=== PATIENT | female | born 1960 | race Caucasian/White ===

== ENCOUNTER 2020-07-22 11:10 | Emergency (ER) | payer OTHER, SELFPAY ==
--- NOTE | 2020-07-22 11:18 | ED.GENADULT ---
HPI - General Adult General Chief complaint: Urogenital-Female Stated complaint: UTI Time Seen by Provider: 07/22/20 11:18 Source: patient Mode of arrival: ambulatory Limitations: no limitations History of Present Illness HPI narrative: 59-year-old female patient presents to the [facility] with complaints of possible urinary tract infection. Patient states she has had burning with urination that started this morning, increase in frequency in urination. Patient states she has very slight low back pain and some lower abdominal pain. Denies any fevers, body aches or chills. Denies any nausea, vomiting or diarrhea. Related Data Home Medications Medication Instructions Recorded Confirmed albuterol sulfate 1 inh INHALATION QID PRN 07/22/20 07/22/20 alprazolam [Xanax] 0.25 mg PO HS PRN 07/22/20 07/22/20 cholecalciferol (vitamin D3) 250 mcg PO DAILY 07/22/20 07/22/20 [Vitamin D3] fluticasone propion-salmeterol 2 puff INHALATION BID 07/22/20 07/22/20 [Advair HFA] krill oil 500 mg PO DAILY 07/22/20 07/22/20 losartan 50 mg PO DAILY 07/22/20 07/22/20 magnesium 400 mg PO DAILY 07/22/20 07/22/20 metformin 1,000 mg PO BID 07/22/20 07/22/20 potassium chloride 20 meq PO DAILY 07/22/20 07/22/20 trazodone 25 mg PO HS 07/22/20 07/22/20 triamterene-hydrochlorothiazid 0.5 tablet PO DAILY 07/22/20 07/22/20 vit C-vit J-erzuhf-ezhh-lutein 1 cap PO BID 07/22/20 07/22/20 [PreserVision Lutein] vitamin E 200 unit PO DAILY 07/22/20 07/22/20 Allergies Allergy/AdvReac Type Severity Reaction Status Date / Time Contrast Media Allergy Unknown RED FLUSH Uncoded 07/22/20 11:36 WITH NAUSEA Review of Systems Review of Systems: Narrative: CONSTITUTIONAL: Denies fever, chills, or sweats. EYES: Denies visual changes, redness, or discharge. ENT: Denies rhinorrhea, congestion, sore throat, or otalgia. CARDIOVASCULAR: Denies chest pain, palpitations, or edema. RESPIRATORY: Denies cough or dyspnea. GASTROINTESTINAL: Positive lower abdominal pain, denies nausea, vomiting, or diarrhea. GENITOURINARY: Denies dysuria or hematuria. Positive pain with urination, urgency frequency that started this morning. SKIN: Denies rash or itching. MUSCULOSKELETAL: Positive low back pain, denies joint pain, or myalgia. NEUROLOGIC: Denies headache, numbness, or weakness. PSYCHIATRIC: Denies anxiety or depression. 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 There is no relevant family history pertinent to the presenting complaint. Exam Narrative: Exam Narrative: GENERAL: Well-appearing, well-nourished, and in no acute distress. HEAD: Normocephalic, atraumatic. EYES: PERRLA and EOMI. ENT: Nares clear, no rhinorrhea or epistaxis. Mucous membranes moist. NECK: Supple. No lymphadenopathy CHEST: Clear to auscultation. No respiratory distress. HEART: Regular rate and rhythm. No murmur heard. Normal peripheral pulses. ABDOMEN: Soft, nontender, nondistended, normal active bowel sounds. No CVA tenderness on percussion. Suprapubic tenderness noted on palpation. EXTREMITIES: Normal range of motion. No edema. SKIN: Warm, dry, no rash. NEURO: No focal deficits. Alert and oriented x3. Course Vital Signs Vital signs: Vital Signs Temperature 36.6 C 07/22/20 11:24 Pulse Rate 86 07/22/20 11:24 Resp
[2020-07-22 11:24] VITALS: BP 124/71; PULSE 86; RESP 14; TEMP 36.6; O2SAT 98
== END 2020-07-22 11:52 | disposition home or self-care (01) ==
PROVIDERS: Emergency Provider Nurse Practitioner Family; PCP Internal Medicine
DX: N30.00 Acute cystitis without hematuria (principal); J45.909 Unspecified asthma, uncomplicated; E11.9 Type 2 diabetes mellitus without complications; I10 Essential (primary) hypertension; M06.9 Rheumatoid arthritis, unspecified
CPT/HCPCS: 81003; 87086; 87088; 99203; G0463

== ENCOUNTER 2023-12-28 10:10 | Emergency (ER) | payer OTHER, SELFPAY ==
--- NOTE | 2023-12-28 11:13 | ED.URI ---
HPI - URI/Sore Throat General Stated Complaint: Shortness of Breath/Cough Time Seen by Provider: 12/28/23 11:13 Source: patient, RN notes reviewed and old records reviewed Mode of arrival: ambulatory Limitations: no limitations History of Present Illness HPI Narrative: 63 yo female presents to the [facility] care for cough, headache and ear pain Sx started yesterday Reports using her albuterol at 6:00 a.m. this morning. Does take her Advair as prescribed twice daily Patient denies any fevers Denies any chest pain Denies abdominal pain Related Data Home Medications Medication Instructions Recorded Confirmed albuterol sulfate 90 mcg/actuation 1 inh inhalation QID PRN Dyspnea 07/22/20 07/22/20 aerosol inhaler alprazolam 0.25 mg tablet (Xanax) 0.25 mg PO HS PRN Anxiety 07/22/20 07/22/20 cholecalciferol (vitamin D3) 125 250 mcg PO DAILY 07/22/20 07/22/20 mcg (5,000 unit) tablet (Vitamin D3) fluticasone propionate 230 2 puff inhalation BID 07/22/20 07/22/20 mcg-salmeterol 21 mcg/actuation HFA inhaler (Advair HFA) krill oil 500 mg capsule 500 mg PO DAILY 07/22/20 07/22/20 losartan 50 mg tablet 50 mg PO DAILY 07/22/20 07/22/20 magnesium 200 mg tablet 400 mg PO DAILY 07/22/20 07/22/20 metformin 1,000 mg tablet 1,000 mg PO BID 07/22/20 07/22/20 potassium chloride 20 mEq 20 meq PO DAILY 07/22/20 07/22/20 tablet,extended release trazodone 50 mg tablet 25 mg PO HS 07/22/20 07/22/20 triamterene 75 0.5 tablet PO DAILY 07/22/20 07/22/20 mg-hydrochlorothiazide 50 mg tablet vit C 226 mg-vit E 90 mg-copper 1 cap PO BID 07/22/20 07/22/20 0.8 mg-zinc oxide-lutein 5 mg capsule (PreserVision Lutein) vitamin E 200 unit capsule 200 unit PO DAILY 07/22/20 07/22/20 Allergies Allergy/AdvReac Type Severity Reaction Status Date / Time Contrast Media Allergy Unknown RED FLUSH Uncoded 07/22/20 11:36 WITH NAUSEA Review of Systems Review of Systems: All systems reviewed & are unremarkable except as noted in HPI and below Constitutional: Constitutional: Reports as per HPI and Reports body ache(s) Eyes: Eyes: Reports no additional eye complaints ENT: Reports system reviewed and no additional complaints, except as documented Cardiovascular: Cardiovascular: Reports no additional cardiovascular complaints, Denies chest pain and Denies dyspnea Respiratory: Respiratory: Reports as per HPI, Denies chest congestion, Reports cough and Denies dyspnea Gastrointestinal: Gastrointestinal: Reports no additional gastrointestinal complaints, Denies abdominal pain, Denies nausea and Denies vomiting Musculoskeletal: Musculoskeletal: Reports no additional musculoskeletal complaints Integumentary/Breasts: Skin/Breast: Reports system reviewed and no additional complaints, except as docu Neurologic: Reports system reviewed and no additional complaints, except as documented Psychiatric: Psychiatric: Reports no additional psychiatric complaints Allergic/Immunologic: Allergic/Immunologic: Reports no additional allergic/immunologic complaints PMFSH Past Medical History Medical History Anemia Asthma Diabetes 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 There is no relevant family history pertinent to the patient complaint. Exam Const: General: cooperative, healthy appearing, comfortable, no acute distress, well develop
== END 2023-12-28 11:38 | disposition home or self-care (01) ==
PROVIDERS: Emergency Provider Nurse Practitioner; PCP Internal Medicine
DX: J40 Bronchitis, not specified as acute or chronic (principal); E11.9 Type 2 diabetes mellitus without complications; I10 Essential (primary) hypertension; M06.9 Rheumatoid arthritis, unspecified; Z20.822 Contact with and (suspected) exposure to COVID-19
CPT/HCPCS: 87426; 99213; G0463

== ENCOUNTER 2024-01-03 09:22 | Emergency (ER) | payer OTHER, SELFPAY ==
[2024-01-03] VITALS (17 sets, daily range): BP systolic 121–146; BP diastolic 73–89; PULSE 75–105; RESP 16–18; TEMP 36.2–36.5; O2SAT 93–98
--- NOTE | ~2024-01-03 | XR_ITS ---
EXAMINATION: XR chest 1V portable DATE: 01/03/2024 09:53 INDICATION: Shortness of breath. Cough. Asthma exacerbation. TECHNIQUE: A single frontal view of the chest was obtained. COMPARISON: None. FINDINGS: There is no pneumonia, pleural effusion, or pneumothorax. The heart size is normal. IMPRESSION: 1. No acute cardiopulmonary disease. Reviewed, dictated and finalized at location [facility]. [facility]
--- NOTE | 2024-01-03 09:32 | ED.URI ---
HPI - URI/Sore Throat General Chief Complaint: Upper Respiratory Infection Stated Complaint: cough and shortness of breath Time Seen by Provider: 01/03/24 09:29 Source: patient Mode of arrival: ambulatory Limitations: no limitations History of Present Illness HPI Narrative: 63-year-old female with a history of diabetes mellitus, hypertension, seasonal allergies, rheumatoid arthritis, asthma presented to urgent care on 12/28/2023 for asthma exacerbation. She tested negative for influenza and COVID. She was treated with prednisone. After completing prednisone for 5 days the patient continues to have ongoing -- cough productive of mucopurulent sputum -- nighttime awakening with coughing spells' -- Ongoing shortness of breath -- low-grade fever -- substernal burning with coughing and deep breathing. MD elicited complaint: fever and cough Pertinent past history: asthma Onset (ago): week(s) ( One week) Consistency: constant Description of mucous: yellow and green Able to tolerate fluids by mouth: Yes Exacerbating factors: speaking and deep breaths Relieving factors: nothing Associated symptoms: fever Treatments prior to arrival: other ( prednisone) Related Data Home Medications Medication Instructions Recorded Confirmed albuterol sulfate 90 mcg/actuation 1 inh inhalation QID PRN Dyspnea 07/22/20 01/03/24 aerosol inhaler alprazolam 0.25 mg tablet (Xanax) 0.25 mg PO HS PRN Anxiety 07/22/20 01/03/24 cholecalciferol (vitamin D3) 125 125 mcg PO DAILY 07/22/20 01/03/24 mcg (5,000 unit) tablet (Vitamin D3) fluticasone propionate 230 2 puff inhalation BID 07/22/20 01/03/24 mcg-salmeterol 21 mcg/actuation HFA inhaler (Advair HFA) krill oil 500 mg capsule 500 mg PO DAILY 07/22/20 01/03/24 magnesium 200 mg tablet 400 mg PO DAILY 07/22/20 01/03/24 metformin 1,000 mg tablet 1,000 mg PO BID 07/22/20 01/03/24 potassium chloride 20 mEq 20 meq PO DAILY 07/22/20 01/03/24 tablet,extended release trazodone 50 mg tablet 50 mg PO HS 07/22/20 01/03/24 triamterene 75 0.5 tablet PO DAILY 07/22/20 01/03/24 mg-hydrochlorothiazide 50 mg tablet lifitegrast 5 % eye drops in a 1 drp EACH EYE BID 01/03/24 01/03/24 dropperette (Xiidra) meclizine 12.5 mg tablet 12.5 mg PO Q6-8H PRN Anxiety 01/03/24 01/03/24 meloxicam 7.5 mg tablet 7.5 mg PO DAILY 01/03/24 01/03/24 pravastatin 20 mg tablet 20 mg PO HS 01/03/24 01/03/24 semaglutide 0.25 mg or 0.5 mg (2 0.5 mg subcut WEEKLY 01/03/24 01/03/24 mg/3 mL) subcutaneous pen injector Allergies Allergy/AdvReac Type Severity Reaction Status Date / Time montelukast [From Singulair] AdvReac Hyperactive Verified 01/03/24 09:31 Contrast Media Allergy Unknown RED FLUSH Uncoded 01/03/24 09:31 WITH NAUSEA Review of Systems Review of Systems: All systems reviewed & are unremarkable except as noted in HPI and below Constitutional: Constitutional: Reports as per HPI, Reports no additional constitutional complaints, Reports fever(s) and Reports weakness Eyes: Eyes: Reports as per HPI and Reports no additional eye complaints ENT: Reports system reviewed and no additional complaints, except as documented and Reports as per HPI Cardiovascular: Cardiovascular: Reports as per HPI and Reports no additional cardiovascular complaints Respiratory: Respiratory: Reports as per HPI, Reports no additional respiratory complaints, Reports chest congestion, Reports cough, Reports dyspnea and Reports wheezing Gastrointestinal: Gastrointestinal: Reports as per HPI and Reports no additional gastrointestinal complaints Genitourinary: Genitourinary: Reports no additional female genitourinary complaints and Reports as per HPI Musculoskeletal: Musculoskeletal: Reports no additional musculoskeletal complaints and Reports as per HPI Integumentary/Breasts: Skin/Breast: Reports system reviewed and no additional complaints, except as docu and Reports as per HPI Neurologic: Reports system reviewed and no additional com
[2024-01-03 10:02] LABS: Basophils Absolute Auto 0.03 K/mm3 (0.00-0.10); Basophils Percent Auto 0.3 % (0.0-1.0); Eosinophils Absolute Auto 0.02 K/mm3 (0.02-0.50); Eosinophils Percent Auto 0.2 % (1.0-6.0); Hematocrit 41.9 % (35.0-49.0); Hemoglobin 13.9 g/dL (12.0-15.0); Immature Granulocyte Absolute 0.04 K/mm3 (0.00-0.00); Immature Granulocyte Percent A 0.4 % (0.0-0.0); Lymphocytes Absolute Auto 1.75 K/mm3 (1.10-4.50); Lymphocytes Percent Auto 18.1 % (18.0-42.0); Mean Corpuscular HGB Conc 33.2 g/dL (32.0-36.0); Mean Corpuscular Hemoglobin 27.7 pg (27.0-31.0); Mean Corpuscular Volume 83.6 fL (78.0-102.0); Mean Platelet Volume 9.5 fl (9.2-11.8); Monocytes Absolute Auto 0.85 K/mm3 (0.10-0.90); Monocytes Percent Auto 8.8 % (2.0-11.0); Neutrophils Percent Auto 72.2 % (50.0-70.0); Platelet Count Result 201 K/mm3 (150-420); Red Blood Count 5.01 M/mm3 (4.20-5.40); Red Cell Distribution Width 13.4 % (11.6-14.4); White Blood Count 9.7 K/mm3 (4.8-10.8)
[2024-01-03] MEDS: IPRATROPIUM 0.5 MG/ALBUTEROL SULFATE 2.5 MG AMPUL.NEB 3 ML INHALATION (10:02)
[2024-01-03 10:22] LABS: Alanine Aminotransferase 39 U/L (14-59); Albumin Level 3.5 g/dL (3.4-5.0); Alkaline Phosphatase 35 U/L (46-116); Anion Gap 12 mmol/L (8-16); Aspartate Amino Transferase 16 U/L (15-37); Bilirubin,Total 0.5 mg/dL (0.00-1.00); Blood Urea Nitrogen 13 mg/dL (7-18); Calcium 8.9 mg/dL (8.5-10.1); Carbon Dioxide 27 mmol/L (21-32); Chloride 101 mmol/L (98-108); Estimated CRCL calculation 60 ml/min; Estimated Glomerular Filt Rate > 60; Glucose 107 mg/dL (70-99); Osmolality Calculated 290 mOsm/kg (285-295); Potassium 3.6 mmol/L (3.5-5.1); Sodium 140 mmol/L (136-145); Total Protein 7.2 g/dL (6.4-8.2); Troponin I 10.8 ng/L (0.00-60.4)
[2024-01-03 10:24] LABS: SARS-CoV-2 RNA PCR Negative (Negative)
[2024-01-03 10:25] LABS: Influenza A QL RT-PCR Negative (Negative); Influenza B QL RT-PCR Positive (Negative); RSV RNA, RT-PCR Negative (Negative)
[2024-01-03 10:28] LABS: Lactic Acid Reflex 2.4 mmol/L (0.4-2.0)
[2024-01-03 11:15] LABS: Reflex Lactic Acid Yes or No Add Lactic
== END 2024-01-03 11:00 | disposition home or self-care (01) ==
PROVIDERS: Emergency Provider Internal Medicine Critical Care Medicine; PCP Internal Medicine
DX: J11.1 Influenza due to unidentified influenza virus with other respiratory manifestations (principal); J40 Bronchitis, not specified as acute or chronic; E11.9 Type 2 diabetes mellitus without complications; I10 Essential (primary) hypertension; M06.9 Rheumatoid arthritis, unspecified; Z79.899 Other long term (current) drug therapy; Z79.1 Long term (current) use of non-steroidal anti-inflammatories (NSAID); Z79.84 Long term (current) use of oral hypoglycemic drugs; Z20.822 Contact with and (suspected) exposure to COVID-19
CPT/HCPCS: 36415; 71045; 80053; 83605; 84484; 85025; 87637; 94640; 99284

== ENCOUNTER 2024-03-29 12:32 | Outpatient (CLI) | payer OTHER, SELFPAY ==
[2024-03-29 13:16] LABS: Anion Gap 9 mmol/L (4-12); Blood Urea Nitrogen 12 mg/dL (7-17); Carbon Dioxide 30 mmol/L (22-30); Chloride 104 mmol/L (98-107); Estimated Glomerular Filt Rate > 60; Glucose 109 mg/dL (65-110); Potassium 3.7 mmol/L (3.4-5.0); Sodium 143 mmol/L (137-145)
--- NOTE | 2024-03-29 13:48 | ECG_ITS ---
SEE SCANNED COPY FOR CONFIRMED REPORT MTDD
== END 2024-03-29 12:33 | disposition home or self-care (01) ==
PROVIDERS: PCP Internal Medicine; Visit Provider Anesthesiology
DX: Z01.818 Encounter for other preprocedural examination (principal); I10 Essential (primary) hypertension; E11.9 Type 2 diabetes mellitus without complications
CPT/HCPCS: 36415; 80048; 93005

== ENCOUNTER 2024-04-05 01:09 | Day surgery (SDC) | payer OTHER, SELFPAY ==
[2024-03-29 09:16] VITALS: BMI 30.4
--- NOTE | 2024-03-29 09:26 | PC.NURSE ---
Report to the Outpatient Waiting Room, entrance under the green pavilion located off [facility], at time _0600_ on date _[id number]_. Planned Procedure Time: _0730_. Time changes happen often and if your time is changed the preop area will call you the afternoon before. - You and your visitor will be asked to self-screen and do not enter if you have any COVID symptoms. - A mask is optional within the hospital at this time. Patients may have clear liquids (water, carbonated beverages, clear teas, apple juice) until 3 hours prior to surgery with a maximum of 20 ounces. - No food from midnight until time of surgery Take the following medications with a SIP of water the morning of surgery: ___Inhalers. DO NOT STOP ANY OF YOUR OTHER PRESCRIPTION MEDICATIONS PRIOR TO SURGERY ?EXCEPT THE FOLLOWING Medications to discontinue per physician All vitamins and supplements. Date to take last qdsu___[id number] Please no make-up, nail greenlandic, hairspray, perfume, deodorant, or body powder the day of surgery. No jewelry (including any body piercings) or valuables the day of surgery, leave them at home. Please take a shower or bath the night before, or the morning of, surgery with an antibacterial soap. Wear comfortable, loose fitting clothing. - Jewelry must be removed prior to entering the operating room. Rings and piercings that are not removed may be cut off. - The hospital will not accept responsibility for valuables. - Please leave all valuables, including medications, at home the day of surgery. If you are going home after surgery, a licensed tour bus driver/guide must drive you home. - NO public transportation without another adult if you receive anesthesia. - We recommend that an adult stay with you for 24 hours following discharge. - We also recommend that you do not drive, make important decision, drink alcoholic beverages, or take any drugs that were not prescribed by your health care provider for at least 24 hours after your discharge time. Follow any additional instructions given to you from your surgeon. If you or anyone in your household have experienced Covid symptoms in the past week, please notify your surgeon or the nurse liaison at the phone number below for possible testing. Telephone instructions given to __Pamela__and asked if any additional questions and then verbalized understanding. Patient advised to call surgeon office or pre surgery nurse liaison [phone] if any additional questions.
--- NOTE | 2024-03-31 19:25 | PM.IMHP ---
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 D and C, abnormal uterine bleeding Hemorrhoids Hypertension Rheumatoid arthritis Seasonal allergies Surgical History Surgical History H/O hemorrhoidectomy History of bladder surgery Tie-up History of orthopedic surgery Left knee, knee scope Family History Family History Other Cancer Diabetes mellitus Hypertension Social History Social History Smoking status: Never smoker Living arrangements: with family Spiritual care concerns: No Meds Home Medications and Allergies Home Medications Medication Instructions Recorded Confirmed Type albuterol sulfate 90 mcg/actuation 1 inh inhalation QID PRN Dyspnea 07/22/20 03/29/24 History aerosol inhaler alprazolam 0.25 mg tablet (Xanax) 0.25 mg PO HS PRN Anxiety 07/22/20 03/29/24 History cholecalciferol (vitamin D3) 125 125 mcg PO DAILY 07/22/20 03/29/24 History mcg (5,000 unit) tablet (Vitamin D3) fluticasone propionate 230 2 puff inhalation BID 07/22/20 03/29/24 History mcg-salmeterol 21 mcg/actuation HFA inhaler (Advair HFA) krill oil 500 mg capsule 500 mg PO DAILY 07/22/20 03/29/24 History magnesium 200 mg tablet 400 mg PO DAILY 07/22/20 03/29/24 History metformin 1,000 mg tablet 500 mg PO BID 07/22/20 03/29/24 History potassium chloride 20 mEq 20 meq PO DAILY 07/22/20 03/29/24 History tablet,extended release trazodone 50 mg tablet 50 mg PO HS 07/22/20 03/29/24 History triamterene 75 0.5 tablet PO DAILY 07/22/20 03/29/24 History mg-hydrochlorothiazide 50 mg tablet ipratropium 0.5 mg-albuterol 3 mg 3 ml inhalation Q6H PRN shortness 01/03/24 03/29/24 Rx (2.5 mg base)/3 mL nebulization of breath #180 mL soln lifitegrast 5 % eye drops in a 1 drp EACH EYE BID 01/03/24 03/29/24 History dropperette (Xiidra) meclizine 12.5 mg tablet 12.5 mg PO Q6-8H PRN Dizziness Or 01/03/24 03/29/24 History Vertigo meloxicam 7.5 mg tablet 7.5 mg PO DAILY PRN Pain 01/03/24 03/29/24 History pravastatin 20 mg tablet 20 mg PO HS 01/03/24 03/29/24 History semaglutide 0.25 mg or 0.5 mg (2 0.5 mg subcut WEEKLY 01/03/24 03/29/24 History mg/3 mL) subcutaneous pen injector biotin 10,000 mcg chewable tablet 10,000 mcg PO DAILY 03/29/24 03/29/24 History (Hair, Skin and Nails (biotin)) docusate sodium 50 mg capsule 100 mg PO DAILY 03/29/24 03/29/24 History loratadine-pseudoephedrine ER 10 1 tablet PO DAILY 03/29/24 03/29/24 History mg-240 mg tablet,extended nyfhrve25am (Claritin-D 24 Hour) lutein 25 mg-zeaxanthin 5 mg 1 cap PO DAILY 03/29/24 03/29/24 History capsule Allergies Allergy/AdvReac Type Severity Reaction Status Date / Time montelukast [From Singulair] AdvReac Hyperactive Verified 03/29/24 09:10 Contrast Media Allergy Unknown RED FLUSH Uncoded 03/29/24 09:10 WITH NAUSEA Exam Narrative: fixed urethra rectocele to introitus Assessment and Plan Assessment and plan (1) Rectocele: Code(s): N81.6 - Rectocele Status: Acute (2) Intrinsic sphincter deficiency (ISD): Code(s): N36.42 - Intrinsic sphincter deficiency (ISD) Status: Acute Plan Rectocele repair/urethral bulking agent
[2024-04-05] VITALS (8 sets, daily range): BP systolic 118–144; BP diastolic 59–84; PULSE 67–81; RESP 14–18; TEMP 36.4; O2SAT 94–100
--- NOTE | 2024-04-05 04:33 | WPDHPUPDATE1 ---
History and Physical Update Update Date/Time: 04/05/24 04:33 History and Physical has been reviewed, including an updated exam of the patient. There are NO changes in the patient's condition. Risks, benefits, and alternatives have been discussed and questions answered. Patient agrees to proceed with procedure.
[2024-04-05 06:40] LABS: Glucose Point of Care 143 mg/dl (65-105)
--- NOTE | 2024-04-05 06:45 | WPDANESEPPF ---
Anes - Initial Pre Proc Eval Procedure: Operation Date: 04/05/24 07:30 Proposed Procedures p Rectocele Repair, - Braulio Brizuela MD s Cystoscopy, Injection Bulking Agent - Braulio Brizuela MD Date/Time: 04/05/24 06:45 Surgeon: Braulio Brizuela MD Pre Op Diagnosis: rectocele, stress incontinence Patient Data Age: 63 Gender: F Height: 1.68 m Weight: 84.5 kg Allergies Allergy/AdvReac Type Severity Reaction Status Date / Time montelukast [From Singulair] AdvReac Hyperactive Verified 04/05/24 06:46 Contrast Media Allergy Unknown RED FLUSH Uncoded 03/29/24 09:10 WITH NAUSEA Home Medications Medication Instructions Recorded Confirmed Type albuterol sulfate 90 mcg/actuation 1 inh inhalation QID PRN Dyspnea 07/22/20 04/05/24 History aerosol inhaler alprazolam 0.25 mg tablet (Xanax) 0.25 mg PO HS PRN Anxiety 07/22/20 03/29/24 History cholecalciferol (vitamin D3) 125 125 mcg PO DAILY 07/22/20 04/05/24 History mcg (5,000 unit) tablet (Vitamin D3) fluticasone propionate 230 2 puff inhalation BID 07/22/20 03/29/24 History mcg-salmeterol 21 mcg/actuation HFA inhaler (Advair HFA) krill oil 500 mg capsule 500 mg PO DAILY 07/22/20 04/05/24 History magnesium 200 mg tablet 400 mg PO DAILY 07/22/20 04/05/24 History metformin 1,000 mg tablet 500 mg PO BID 07/22/20 03/29/24 History potassium chloride 20 mEq 20 meq PO DAILY 07/22/20 04/05/24 History tablet,extended release trazodone 50 mg tablet 50 mg PO HS 07/22/20 03/29/24 History triamterene 75 0.5 tablet PO DAILY 07/22/20 03/29/24 History mg-hydrochlorothiazide 50 mg tablet ipratropium 0.5 mg-albuterol 3 mg 3 ml inhalation Q6H PRN shortness 01/03/24 03/29/24 Rx (2.5 mg base)/3 mL nebulization of breath #180 mL soln lifitegrast 5 % eye drops in a 1 drp EACH EYE BID 01/03/24 03/29/24 History dropperette (Xiidra) meclizine 12.5 mg tablet 12.5 mg PO Q6-8H PRN Dizziness Or 01/03/24 03/29/24 History Vertigo meloxicam 7.5 mg tablet 7.5 mg PO DAILY PRN Pain 01/03/24 03/29/24 History pravastatin 20 mg tablet 20 mg PO HS 01/03/24 03/29/24 History semaglutide 0.25 mg or 0.5 mg (2 0.5 mg subcut WEEKLY 01/03/24 03/29/24 History mg/3 mL) subcutaneous pen injector biotin 10,000 mcg chewable tablet 10,000 mcg PO DAILY 03/29/24 04/05/24 History (Hair, Skin and Nails (biotin)) docusate sodium 50 mg capsule 100 mg PO DAILY 03/29/24 03/29/24 History loratadine-pseudoephedrine ER 10 1 tablet PO DAILY 03/29/24 03/29/24 History mg-240 mg tablet,extended [id number] (Claritin-D 24 Hour) lutein 25 mg-zeaxanthin 5 mg 1 cap PO DAILY 03/29/24 03/29/24 History capsule Laboratory Tests 04/05/24 06:35 POC Capillary Glucose 143 H mg/dl (65-105) Patient hx anesthesia problems: none Family hx anesthesia problems: none Results Review: All pre-operative results and documents have been reviewed as part of the pre-operative evaluation. 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 D and C, abnormal uterine bleeding Hemorrhoids Hypertension Rheumatoid arthritis Seasonal allergies Surgical History Surgical History H/O hemorrhoidectomy History of bladder surgery Tie-up History of orthopedic surgery Left knee, knee scope Family History Family History Other Cancer Diabetes mellitus Hypertension Social History Social History Smoking status: Never smoker Living arrangements: with family Spiritual care concerns: No Anes - Eval Final PreProcedure Day of Procedure 04/05/24 06:45 Patient weight: obese Heart: regular rate and rhythm Lungs: clear to auscultation Airway: Mallampati scale class III Neurological: a
[2024-04-05] MEDS: ceFAZolin 2 GM/D5W 50 ML 2 GM/50 ML BAG IVPB (07:29)
[2024-04-05] MEDS: BUPIVACAINE/EPINEPHRINE 0.5% 10 ML VIAL 20 ML INFILTRATE (07:49)
[2024-04-05] MEDS: LIDOCAINE HCL 2% GEL UROJET 10 ML PKG MUCOUS MEM (07:49)
[2024-04-05] MEDS: LACTATED RINGERS 1,000 ML 30 ML IV CONT ×2 (08:21→08:58)
[2024-04-05 08:37] LABS: Glucose Point of Care 138 mg/dl (65-105)
--- NOTE | 2024-04-05 08:53 | W.PM.PROC2 ---
Procedure Note - Detailed Date of Procedure 04/05/24 Pre-op Diagnosis rectocele, intrinsic sphincter deficiency Post-op Diagnosis Same Procedure Performed Rectocele repair, cystoscopy with transurethral injection of bulking material Surgeon Braulio Brizuela MD Anesthesia General Indications This is a woman with a rectocele which is symptomatic. She has intrinsic sphincter deficiency as well. She presents for the above. She understands risks of bleeding, infection, damage surrounding organs, damage to the urinary tract, recurrence of prolapse, recurrent or persistent incontinence, hip and leg pain, damage to the rectum, fistula formation, obstructive voiding. Agrees to proceed Findings Uncomplicated rectocele repair and bulking agent. One syringe of bulking material used Description of Procedure She is correctly identified. Informed consent obtained. She had from the operating room. She was given general anesthesia. She was placed in the dorsal lithotomy position. She was prepped draped sterile fashion. She was given appropriate perioperative antibiotics. Time-out performed. I placed a [place] retractor. I placed Brunner catheter. She had a rectocele to the introitus. I grasped the rectocele with Allis clamps. I infiltrated the subcutaneous tissues with 20 cc of local mixed with epinephrine. A midline vaginal incision. I dissected the mucosa off the underlying fascial structures laterally into the apex. I took great care not to injure underlying rectum. I then performed a plication rectocele repair. I used interrupted 0 Vicryl sutures. Again took great care to protect the underlying rectum. Once the plication repair was done I trimmed excess vaginal mucosa. I closed the vaginal closed with a running 2-0 Vicryl suture. There was excellent rectocele reduction I then anesthetized a krishan-shaped area of skin on the perineum. I removed this area of skin. I performed a perineoplasty with 0 Vicryl suture. I used a 2-0 Vicryl to close mucosa to mucosa. There was excellent perineal support without undue narrowing of the rectum. On cystoscopy she had no significant bladder abnormalities. She had no tumors or stones. Ureteral orifices were normal. There was no surgical artifact. Urethra is open consistent with intrinsic sphincter deficiency. I picked a site the mid urethra 2 cm distal to bladder neck. I injected bulking agent circumferentially forming 5 pillows Coaptite in the urethra. I used 1 syringe total there was excellent bulking effect. Her bladder was left partially full. Rectal exam was normal. She was awakened transferred to PACU in stable condition Estimated Blood Loss 50 Drains No Packing No Pathology None sent Complications No immediate complications Condition Stable Disposition PACU
[2024-04-05] MEDS: oxyCODONE HCL (*CRX) 5 MG TAB IR PO (09:49)
== END 2024-04-05 10:27 | disposition home or self-care (01) ==
PROVIDERS: PCP Internal Medicine; Visit Provider Urology
PROC: 0JQC0ZZ Repair Pelvic Region Subcutaneous Tissue and Fascia, Open Approach (ICD-10-PCS; CPT 45560; principal; 2024-04-05 07:30)
PROC: 3E0K8GC Introduction of Other Therapeutic Substance into Genitourinary Tract, Via Natural or Artificial Opening Endoscopic (ICD-10-PCS; CPT 52287; 2024-04-05 07:30)
DX: N81.6 Rectocele (principal); N36.42 Intrinsic sphincter deficiency (ISD); E11.9 Type 2 diabetes mellitus without complications; I10 Essential (primary) hypertension; M06.9 Rheumatoid arthritis, unspecified; J45.909 Unspecified asthma, uncomplicated; D64.9 Anemia, unspecified; E66.9 Obesity, unspecified; Z68.30 Body mass index [BMI] 30.0-30.9, adult; Z79.51 Long term (current) use of inhaled steroids; Z79.84 Long term (current) use of oral hypoglycemic drugs; Z79.85 Long-term (current) use of injectable non-insulin antidiabetic drugs
CPT/HCPCS: 57250; 51715; 36415; 80048; 82948; 93005; A9270; J0690; J1100; J2405; J2704; J3010; J7120; L8606

== ENCOUNTER 2024-08-20 08:27 | Outpatient (CLI) | payer OTHER, SELFPAY | END 2024-08-20 08:28 | disposition home or self-care (01) | LOC: ANHBWCAUD 08:27 | PROVIDERS: PCP Internal Medicine | DX: H90.3 Sensorineural hearing loss, bilateral (principal) | CPT/HCPCS: 92557; 92567 ==

== ENCOUNTER 2025-06-24 09:12 | Emergency (ER) | payer MEDICARE, SELFPAY ==
--- NOTE | ~2025-06-24 | CT_ITS ---
EXAMINATION: CT brain wo con DATE: 06/24/2025 09:50 INDICATION: Fall TECHNIQUE: Computed tomography (CT) of the head was performed without intravenous contrast. The dose-length product was 522.34 mGy-cm. COMPARISON: None FINDINGS: No acute intracranial hemorrhage. No mass effect. No midline shift. No hydrocephalus. No skull fracture. Visualized paranasal sinuses and mastoid air cells are clear. IMPRESSION: 1. No acute intracranial hemorrhage. No mass effect. Reviewed, dictated and finalized at location A.
--- NOTE | ~2025-06-24 | CT_ITS ---
EXAMINATION: CT cervical spine wo con DATE: 06/24/2025 09:49 INDICATION: Fall TECHNIQUE: Computed tomography (CT) of the cervical spine was performed without intravenous contrast. The dose-length product was 522.34 mGy-cm. COMPARISON: None FINDINGS: Straightening of the normal cervical lordosis. Cervical vertebral body heights are within normal limits. No compression fracture. Predental space is within normal limits. No prevertebral soft tissue swelling. Lateral dental intervals are within normal limits. Evaluation of the spinal canal contents and bilateral neural foramen is limited due to CT technique. Moderate anterior osteophytosis in the mid cervical spine. IMPRESSION: 1. No compression fracture in the cervical spine. 2. Straightening of the normal cervical lordosis. If symptoms persist or worsen, consider a short-term follow-up study or MRI imaging for further assessment. Reviewed, dictated and finalized at location A. IMPRESSION: 1. No compression fracture in the cervical spine. 2. Straightening of the normal cervical lordosis. If symptoms persist or worsen, consider a short-term follow-up study or MRI gissel ging for further assessment.
[2025-06-24 09:12] VITALS: BP 167/83; PULSE 82; RESP 18; TEMP 36.5; O2SAT 94
--- NOTE | 2025-06-24 09:32 | ED.GENADULT ---
HPI - General Adult General Chief complaint: Skin/Abscess/Foreign Body Stated complaint: fall- head laceration Time Seen by Provider: 06/24/25 09:20 Source: patient Mode of arrival: ambulatory Limitations: no limitations History of Present Illness HPI narrative: patient lost her balance while trying to fix her bed prior to arrival, hit the edge of a door by forehead. No loss of consciousness, complaining of headache and neck pain. Last tetanus shot over 5 years ago. Patient denies other injuries. Related Data Home Medications ?Medication ?Instructions ?Recorded ?Confirmed ?Last Taken ?Type albuterol sulfate 90 mcg/actuation 1 inh inhalation QID PRN Dyspnea 07/22/20 04/05/24 04/05/24 04:00 History aerosol inhaler alprazolam 0.25 mg tablet (Xanax) 0.25 mg PO HS PRN Anxiety 07/22/20 03/29/24 Unknown History cholecalciferol (vitamin D3) 125 125 mcg PO DAILY 07/22/20 04/05/24 04/02/24 History mcg (5,000 unit) tablet (Vitamin D3) fluticasone propionate 230 2 puff inhalation BID 07/22/20 03/29/24 Unknown History mcg-salmeterol 21 mcg/actuation HFA inhaler (Advair HFA) krill oil 500 mg capsule 500 mg PO DAILY 07/22/20 04/05/24 04/02/24 History magnesium 200 mg tablet 400 mg PO DAILY 07/22/20 04/05/24 04/02/24 History metformin 1,000 mg tablet 500 mg PO BID 07/22/20 03/29/24 Unknown History potassium chloride 20 mEq 20 meq PO DAILY 07/22/20 04/05/24 04/02/24 History tablet,extended release trazodone 50 mg tablet 50 mg PO HS 07/22/20 03/29/24 Unknown History triamterene 75 0.5 tablet PO DAILY 07/22/20 03/29/24 Unknown History mg-hydrochlorothiazide 50 mg tablet lifitegrast 5 % eye drops in a 1 drp EACH EYE BID 01/03/24 03/29/24 Unknown History dropperette (Xiidra) meclizine 12.5 mg tablet 12.5 mg PO Q6-8H PRN Dizziness Or 01/03/24 03/29/24 Unknown History Vertigo meloxicam 7.5 mg tablet 7.5 mg PO DAILY PRN Pain 01/03/24 03/29/24 Unknown History Held on 04/05/24. Instructions: Resume on 04/07/24. pravastatin 20 mg tablet 20 mg PO HS 01/03/24 03/29/24 Unknown History semaglutide 0.25 mg or 0.5 mg (2 0.5 mg subcut WEEKLY 01/03/24 03/29/24 Unknown History mg/3 mL) subcutaneous pen injector biotin 10,000 mcg chewable tablet 10,000 mcg PO DAILY 03/29/24 04/05/24 04/02/24 History (Hair, Skin and Nails (biotin)) docusate sodium 50 mg capsule 100 mg PO DAILY 03/29/24 03/29/24 Unknown History loratadine-pseudoephedrine ER 10 1 tablet PO DAILY 03/29/24 03/29/24 Unknown History mg-240 mg tablet,extended [id number] (Claritin-D 24 Hour) lutein 25 mg-zeaxanthin 5 mg 1 cap PO DAILY 03/29/24 03/29/24 Unknown History capsule Allergies Allergy/AdvReac Type Severity Reaction Status Date / Time montelukast (From Singulair) AdvReac Hyperactive Verified 06/24/25 09:32 Contrast Media Allergy Unknown RED FLUSH Uncoded 06/24/25 09:32 WITH NAUSEA Review of Systems Review of Systems: All systems reviewed & are unremarkable except as noted in HPI and below PMFSH Past Medical History Medical History Anemia Diabetes Rheumatoid arthritis 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 Very superficial Eyes: Clear conjunctiva Neck: mild diffuse tenderness posteriorly Chest and respiratory: Airway patent, no respiratory distress, no accessory muscle use Heart: Regular rate/rhythm Musculoskeletal: Normal range of motion, nontender back Neurologic: Alert and oriented ?3, TEACHER CCLC is normal as tested, no gross motor deficit Course Vital Signs Vital signs: Vital Signs Temperature 36.5 C 06/24/25 09:12 Pulse Rate 82 06/24/25 09:12 Respiratory Rate 18 06/24/25 09:12 Blood Pressure 167/83 H 06/24/25 09:12 Pulse Oximetry 94 06/24/25 09:12 Oxygen Delivery Room Air 06/24/25 09:12 Temperature 36.5 C 06/24/25 09:12 Pulse Rate 82 06/24/25 09:12 Respiratory Rate 18 06/24/25 09:12 Blood Pressure 167/83 H 06/24/25 09:12 Pulse Oximetry 94 06/24/25 09:12 Oxygen Delivery Room Air 06/24/25 09:12 Medical Decision Making MDM Narrative Medical decision making narrative: forehead laceration Tetanus shot CT head and cervical spine showed no acute abnormality Discharged home on Dermabond instructions Vital Signs Vital Signs: Vital Signs Temperature 36.5 C 06/24/25 09:12 Pulse Rate 82 06/24/25 09:12 Respiratory Rate 18 06/24/25 09:12 Blood Pressure 167/83 H 06/24/25 09:12 Pulse Oximetry 94 06/24/25 09:12 Oxygen Delivery Room Air 06/24/25 09:12 Temperature 36.5 C 06/24/25 09:12 Pulse Rate 82 06/24/25 09:12 Respiratory Rate 18 06/24/25 09:12 Blood Pressure 167/83 H 06/24/25 09:12 Pulse Oximetry 94 06/24/25 09:12 Oxygen Delivery Room Air 06/24/25 09:12 Imaging Data Radiologist's impression: CT head and cervical spine without contrast showed no acute abnormalities Critical Care Time Critical Care Time Critical Care Time: No Discharge Plan Discharge Clinical Impression: Forehead laceration, Glued skin wound Patient Disposition: Home Condition: Improved Instructions: Laceration (ED), Skin Adhesive Care (ED) Additional Instructions: Return if symptoms are worsening , call your family physician for appointment, take Tylenol as as needed for aches and pain, continue home medications. Patient Language: Maltese Prescriptions: No Action meclizine 12.5 mg Tablet 12.5 mg PO Q6-8H PRN (Reason: Dizziness Or Vertigo) meloxicam 7.5 mg Tablet 7.5 mg PO DAILY PRN (Reason: Pain) pravastatin 20 mg Tablet 20 mg PO HS Xiidra 5 % Dropperette 1 drp EACH EYE BID Rx Instructions: administer approximately 12 hours apart semaglutide 0.25 mg or 0.5 mg (2 mg/3 mL) Pen Injector 0.5 mg SUBCUT WEEKLY Rx Instructions: Monday ipratropium-albuterol 0.5 mg-3 mg(2.5 mg base)/3 mL solution for nebulization 3 ml inhalation Q6H PRN (Reason: shortness of breath) Qty: 180 0RF metformin 1,000 mg Tablet 500 mg PO BID triamterene-hydrochlorothiazid 75-50 mg Tablet 0.5 tablet PO DAILY potassium chloride 20 mEq Tablet Extended Release 20 meq PO DAILY magnesium 200 mg Tablet 400 mg PO DAILY cholecalciferol (vitamin D3) [Vitamin D3] 125 mcg (5,000 unit) Tablet 125 mcg PO DAILY albuterol sulfate 90 mcg/actuation Hfa Aerosol Inhaler 1 inh INHALATION QID PRN (Reason: Dyspnea) fluticasone propion-salmeterol [Advair HFA] 230-21 mcg/actuation Hfa Aerosol Inhaler 2 puff INHALATION BID trazodone 50 mg Tablet 50 mg PO HS krill oil 500 mg Capsule 500 mg PO DAILY alprazolam [Xanax] 0.25 mg Tablet 0.25 mg PO HS PRN (Reason: Anxiety) docusate sodium 50 mg Capsule 100 mg PO DAILY Claritin-D 24 Hour 10-240 mg Tablet Extended Release 24 Hr 1 tablet PO DAILY lutein-zeaxanthin 25-5 mg Capsule 1 cap PO DAILY Hair, Skin and Nails (biotin) 10,000 mcg Tablet,Chewable 10,000 mcg PO DAILY hydrocodone-acetaminophen 5-325 mg tablet 1 tablet PO Q6H PRN (Reason: pain) Qty: 20 0RF Follow-up/Referrals: Serafin,Pierre Nails MD [Primary Care Provider, Unknown]
--- OUTSIDE RECORDS SUMMARY | 2025-06-24 09:34 | XMS_ITS | Encounter Summary ---
Author Organization [facility] Address [address] [place] [address] Phone Care Team Providers Care Bellstand Attendant Name Role Phone Pierre Betancourt MD Primary Care Provider Carlos Venegas MD Unavailable Reason for Visit * Reason Comments Medication Refill Encounter Details Date Type Department Care Team (Late st Contact Info) Description 05/10/2023 Refill [facility] - Internal Medicine - [place] [address] [address] Pierre Betancourt MD [address] [place] [address] Medication Refill Social History Tobacco Use Types Packs/Day Years Used Date Smoking Tobacco: Never Passive Smoke Exposure: Never Smokeless Tobacco: Never Alcohol Use Standard Drinks/Week Comments Not Currently 0 (1 standard drink = 0.6 oz pur e alcohol) PHQ-2 Answer Date Recorded Total Score - Questions 1-9 1 07/07 Sexually Active Control Partners Comments Not Currently Comments No Sex and Gender Information Value Date Recorded Sex Assigned at Not on file Legal Sex Female 12:17 AM CDT Gender Identity Not on file Sexual Orientation Not on file documented as of this encounter Miscellaneous Notes * Telephone Encounter - Christa Martínez RN - 05/10/2023 10:12 AM CDT PDMP 02/14/23 - 30 day supply Medication failed the protocol, provider to review and approve the medication order if appropriate. Requested Prescriptions Pending Prescriptions Disp Refills ALPRAZolam (XANAX) 0.25 MG Tablet [Pharmacy Med Name: ALPRAZOLAM 0.25 MG TABLET] 30 Tablet 0 Sig: TAKE ONE TABLET BY MOUTH DAILY NEEDED FOR ANXIETY Not Delegated - Benzodiazepines Protocol Failed - 05/10/2023 10:04 AM Failed - This refill cannot be delegated Passed - Visit with relevant provider in past 12 months or upcoming 90 days Recent Visits Date Type Provider Dept 03/09/23 Office Visit Pierre Betancourt MD [facility] [place] 12/21/22 Telemedicine Pierre Betancourt MD [facility] [place] 12/08/22 Office Visit Pierre Betancourt MD [facility] [place] 07/25/22 Office Visit Pierre Betancourt MD [facility] [place] Showing recent visits within past 365 days and meeting all other requirements Future Appointments Date Type Provider Dept 06/12/23 Appointment Pierre Betancourt MD [facility] [place] Showing future appointments within next 90 days and meeting all other requirements documented in this encounter Plan of Treatment Upcoming Encounters Date Type Department Care Team (Late st Contact Info) Description 11/27/2025 2:00 PM MATRIX INSPECTOR Office Visit [facility] - Neurology [facility] [address] [place] [address] Carlos Venegas MD [address] [place] [address] 12/03/2025 10:00 AM MATRIX INSPECTOR Office Visit [facility] - Primary Care - [place] [address] [place] [phone] Pierre Betancourt MD [address] [place] [address] documented as of this encounter Visit Diagnoses Diagnosis Generalized anxiety disorder documented in this encounter Additional Health Concerns Assessment Noted Time PHQ-9 Depression Total Score: 1 07/25/20 22 9:00 AM CDT documented as of this encounter Care Teams Bellstand Attendant Relationship Specialty Start Date End Date Pierre Betancourt MD PCP - General Internal Medicine 12/21/19 Carlos Venegas MD [address] [place] [address] Consulting Physician Neurology 07/30/24 documented as of this encounter
--- OUTSIDE RECORDS SUMMARY | 2025-06-24 09:34 | XMS_ITS | Encounter Summary ---
Author Organization [facility] Address [address] [place] [address] Phone Care Team Providers Care Transition Coach Name Role Phone Pierre Betancourt MD Primary Care Provider Carlos Venegas MD Unavailable Encounter Details Date Type Department Care Team (Late st Contact Info) Description 06/12/2025 Results Follow-Up [facility] [place] [address] [place] [address] Franny Burger APRN, ASSEMBLY RIVETER [address] [place] [address] POCT UA AUTOMATED W/O MICRO, CULTURE, URINE Social History Tobacco Use Types Packs/Day Years Used Date Smoking Tobacco: Never Passive Smoke Exposure: Never Smokeless Tobacco: Never Alcohol Use Standard Drinks/Week Comments Not Currently 0 (1 standard drink = 0.6 oz pur e alcohol) [facility] Utilities Answer Date Recorded In the past 12 months has [employer] electric, gas, oil, or water company threatened to shut off services in your home? No 11/20/2024 Social Connection and Isolation Panel Answer Date Recorded In a typical week, how many times do you talk on the phone with family, friends, or neighbors? Three times a week 11/20/2024 How often do you get togethe r with friends or relatives? More than three times a week 11/20/2024 How often do you attend chur ch or mormonism services? Never 11/20/2024 Do you belong to any clubs o r organizations such as pentecostal groups, unions, fraternal or athletic groups, or school groups? No 11/20/2024 How often do you attend meet ings of the clubs or organizations you belong to? Never 11/20/2024 Are you , , di vorced, , never , or living with a partner? 11/20/2024 AUDIT-C Answer Date Recorded Q1: How often do you have a drink containing alcohol? Never 11/20/2024 Q2: How many drinks containi ng alcohol do you have on a typical day when you are drinking? Patient does not drink Q3: How often do you have si x or more drinks on one occasion? Never 11/20/2024 Overall Financial Resource Strain (CARDIA) Answe r Date Recorded How hard is it for you to pa y for the very basics like food, housing, medical care, and heating? Not hard at all 11/20/2024 PHQ-2 Answer Date Recorded Total Score - Questions 1-9 0 05/07 [facility] - Occupational Stress Questionnaire Answer Date Recorded Do you feel stress - tense, restless, nervous, or anxious, or unable to sleep at night because your mind is troubled all the time - these days? To some extent 11/20/2024 Exercise Vital Sign Answer Date Recorde d On average, how many days pe r week do you engage in moderate to strenuous exercise (like a brisk walk)? 0 days 11/20/2024 On average, how many minutes do you engage in exercise at this level? 0 min 11/20/2024 Hunger Vital Sign Answer Date Recorded Within the past 12 months, y ou worried that your food would run out before you got the money to buy more. Never true 11/20/19 25 Within the past 12 months, t he food you bought just didn't last and you didn't have money to get more. Never true 11/20/2024 PRAPARE - Transportation Answer Date Re corded In the past 12 months, has l ack of transportation kept you from medical appointments or from getting medications? No 11/06 In the past 12 months, has l ack of transportation kept you from meetings, work, or from getting things needed for daily living? No 11/20/2024 Housing Stability Vital Sign Answer Erasmo e Recorded In the last 12 months, was t here a time when you were not able to pay the mortgage or rent on time? No 12/18/2023 In the last 12 months, how many places have you lived? 1 12/18/2023 In the last 12 months, was t here a time when you did not have a steady place to sleep or slept in a jail (including now)? No 12/18/2023 Housing Stability Vital Sign Answer Erasmo e Recorded In the last 12 months, was t here a time when you were not able to pay the mortgage or rent on time? No 11/20/2024 In the past 12 months, how m any times have you moved where you were living? 0 11/20/2024 At any time in the past 12 m [facility], were you homeless or living in a jail (including now)? No 11/20/2024 Education Answer Date Recorded What is the highest level of school you have completed or the highest degree you have received? 12th grade 09/13/2023 Sexually Active Control Partners Comments Not Currently Comments No Sex and Gender Information Value Date Recorded Sex Assigned at Not on file Legal Sex Female 12:17 AM CDT Gender Identity Not on file Sexual Orientation Not on file documented as of this encounter Plan of Treatment Upcoming Encounters Date Type Department Care Team (Late st Contact Info) Description 11/27/2025 2:00 PM POSTING MACHINE OPERATOR Office Visit [facility] - Neurology [facility] [address] [place] [phone] Carlos Venegas MD [address] [place] [phone] 12/03/2025 10:00 AM POSTING MACHINE OPERATOR Office Visit [facility] - Primary Care - [place] [address] [place] [phone] Pierre Betancourt MD [address] [place] [address] documented as of this encounter Visit Diagnoses Not on filedocumented in this encounter Additional Health Concerns Assessment Noted Time PHQ-9 Depression Total Score: 0 06/02/20 25 9:17 AM CDT documented as of this encounter Care Teams Transition Coach Relationship Specialty Start Date End Date Pierre Betancourt MD PCP - General Internal Medicine 12/21/19 Carlos Venegas MD [address] [place] [phone] Consulting Physician Neurology 07/30/24 documented as of this encounter
--- OUTSIDE RECORDS SUMMARY | 2025-06-24 09:34 | XMS_ITS | Encounter Summary ---
Author Organization [facility] Address [address] [place] [address] Phone Care Team Providers Care Order Picker Name Role Phone Pierre Betancourt MD Primary Care Provider Carlos Venegas MD Unavailable Reason for Visit * Reason Comments Medication Refill Encounter Details Date Type Department Care Team (Late st Contact Info) Description 05/24/2025 Refill [facility] - Internal Medicine - [place] [address] [place] [address] Pierre Betancourt MD [address] [place] [address] Medication Refill Social History Tobacco Use Types Packs/Day Years Used Date Smoking Tobacco: Never Passive Smoke Exposure: Never Smokeless Tobacco: Never Alcohol Use Standard Drinks/Week Comments Not Currently 0 (1 standard drink = 0.6 oz pur e alcohol) [facility] Utilities Answer Date Recorded In the past 12 months has [employer] electric, gas, oil, or water company threatened [...] often do you attend chur ch or confucianist services? Never 11/20/2024 Do you belong to any clubs o r organizations such as synagogue groups, unions, fraternal or athletic groups, or [...] Recorded Total Score - Questions 1-9 0 11/06 [facility] - Occupational Stress Questionnaire Answer Date Recorded [...] place to sleep or slept in a senior care (including now)? No 12/18/2023 Housing Stability Vital Sign Answer Erasmo e Recorded In the last 12 months, was t here a time when you were not able to pay the mortgage or rent on time? No 11/20/2024 In the past 12 months, how m any times have you moved where you were living? 0 11/20/2024 At any time in the past 12 m [facility], were you homeless or living in a senior care (including now)? No 11/20/2024 Education Answer Date [...] st Contact Info) Description 11/27/2025 2:00 PM LINING STAMPER Office Visit [facility] - Neurology [facility] [address] [place] [phone] Carlos Venegas MD [address] [place] [address] 12/03/2025 10:00 AM LINING STAMPER [facility] - [place] [address] [place] [address] Pierre Betancourt MD [address] [place] [address] documented as of this encounter Visit Diagnoses Not on filedocumented in this encounter Additional Health Concerns Assessment Noted Time PHQ-9 Depression Total Score: 0 11/21/19 25 10:35 AM LINING STAMPER documented as of this encounter Care Teams Order Picker Relationship Specialty Start Date End Date Pierre Betancourt MD PCP - General Internal Medicine 12/21/19 Carlos Venegas MD [address] [place] [address] Consulting Physician Neurology 07/30/24 documented as of this encounter
--- OUTSIDE RECORDS SUMMARY | 2025-06-24 09:35 | XMS_ITS | Encounter Summary ---
Author Organization [facility] Address [address] [place] [address] Phone Care Team Providers Care Building Service Worker Name Role Phone Pierre Betancourt MD Primary Care Provider Carlos Venegas MD Unavailable Reason for Visit * Reason Comments Medication Refill Encounter Details Date Type Department Care Team (Late st Contact Info) Description 07/02/2024 Refill [facility] Medical [facility] - Internal Medicine - [place] [address] [place] [address] Pierre Betancourt MD [address] [place] [address] Medication Refill Social History Tobacco Use Types Packs/Day Years Used Date Smoking Tobacco: Never Passive Smoke Exposure: Never Smokeless Tobacco: Never Alcohol Use Standard Drinks/Week Comments Not Currently 0 (1 standard drink = 0.6 oz pur e alcohol) [facility] Utilities Answer Date Recorded In the past 12 months has [employer] electric, gas, oil, or water company threatened to shut off services in your home? No 12/18/2023 Social Connection and Isolation Panel Answer Date Recorded In a typical week, how many times do you talk on the phone with family, friends, or neighbors? More than three times a week 12/18/2023 How often do you get togethe r with friends or relatives? More than three times a week 12/18/2023 How often do you attend chur ch or tenriism services? Never 12/18/2023 Do you belong to any clubs o r organizations such as gnosticism groups, unions, fraternal or athletic groups, or school groups? No 12/18/2023 How often do you attend meet ings of the clubs or organizations you belong to? Never 12/18/2023 Are you , , di vorced, , never , or living with a partner? 12/18/2023 AUDIT-C Answer Date Recorded Q1: How often do you have a drink containing alcohol? Never 12/18/2023 Q2: How many drinks containi ng alcohol do you have on a typical day when you are drinking? Patient does not drink Q3: How often do you have si x or more drinks on one occasion? Never 12/18/2023 Overall Financial Resource Strain (CARDIA) Answe r Date Recorded How hard is it for you to pa y for the very basics like food, housing, medical care, and heating? Not hard at all 12/18/2023 PHQ-2 Answer Date Recorded Total Score - Questions 1-9 1 04/06 [facility] Occupat ional Health - Occupational Stress Questionnaire Answer Date Recorded Do you feel stress - tense, restless, nervous, or anxious, or unable to sleep at night because your mind is troubled all the time - these days? To some extent 12/18/2023 Exercise Vital Sign Answer Date Recorde d On average, how many days pe r week do you engage in moderate to strenuous exercise (like a brisk walk)? 0 days 12/18/2023 On average, how many minutes do you engage in exercise at this level? 0 min 12/18/2023 Hunger Vital Sign Answer Date Recorded Within the past 12 months, y ou worried that your food would run out before you got the money to buy more. Never true 12/18/19 24 Within the past 12 months, t he food you bought just didn't last and you didn't have money to get more. Never true 12/18/2023 PRAPARE - Transportation Answer Date Re corded In the past 12 months, has l ack of transportation kept you from medical appointments or from getting medications? No 12/07 In the past 12 months, has l ack of transportation kept you from meetings, work, or from getting things needed for daily living? No 12/18/2023 Housing Stability Vital Sign Answer [...] place to sleep or slept in a prison (including now)? No 12/18/2023 Education Answer Date Recorded What is the [...] st Contact Info) Description 11/27/2025 2:00 PM GARMENT PARTS CUTTER MACHINE Office Visit [facility] - Neurology [facility] [address] [place] [address] Carlos Venegas MD [address] [place] [address] 12/03/2025 10:00 AM GARMENT PARTS CUTTER MACHINE Office Visit [facility] - Primary Care - [place] [address] [place] [address] Pierre Betancourt MD [address] [place] [address] documented as of this encounter Visit Diagnoses Not on filedocumented in this encounter Additional Health Concerns Assessment Noted Time PHQ-9 Depression Total Score: 1 04/17/20 24 8:04 AM CDT documented as of this encounter Care Teams Building Service Worker Relationship Specialty Start Date End Date Pierre Betancourt MD PCP - General Internal Medicine 12/21/19 Carlos Venegas MD [address] [place] [address] Consulting Physician Neurology 07/30/24 documented as of this encounter
--- OUTSIDE RECORDS SUMMARY | 2025-06-24 09:35 | XMS_ITS | Encounter Summary ---
Author Organization [facility] Address [address] [place] [address] Phone Care Team Providers Care Ultrasonic Cleaner Name Role Phone Pierre Betancourt MD Primary Care Provider Carlos Venegas MD Unavailable Reason for Visit * Reason Comments Medication Refill Encounter Details Date Type Department Care Team (Late st Contact Info) Description 04/01/2023 Refill [facility] Medical Group - Internal Medicine - [place] [address] [place] [address] Pierre Betancourt MD [address] [place] [address] Medication Refill Social History Tobacco Use Types [...] on file Sexual Orientation Not on file COVID-19 Exposure Response Date Recorded In the last 10 days, have yo u been in contact with someone who was confirmed or suspected to have Coronavirus/COVID-19? No / Unsure 03/30/2023 4:18 PM CDT documented as of this encounter Miscellaneous Notes * Telephone Encounter - Christa Martínez RN - 04/04/2023 8:57 AM CDT Medication failed the protocol, provider to review and approve the medication order if appropriate. Requested Prescriptions Pending Prescriptions Disp Refills MAGnesium-Oxide 400 (240 Mg) MG Tablet [Pharmacy Med Name: MAGNESIUM OXIDE 400 MG TABLET] 90 Tablet0 Sig: TAKE ONE TABLET BY MOUTH DAILY Minerals Magnesium Supplementation Protocol Failed - 04/01/2023 4:30 PM Failed - Magnesium on record in past 12 months No results found for: MAGNESIUM Passed - Visit with relevant provider in past 12 months or upcoming 90 days Recent Visits Date Type Provider Dept 03/09/23 [facility] [place] 12/21/22 Telemedicine Pierre Betancourt MD [facility] [place] 12/08/22 Office Visit Pierre Betancourt MD [facility] [place] 07/25/22 Office Visit [facility] [place] Showing recent visits within past 365 days and meeting all other requirements Future Appointments Date Type Provider Dept 06/12/23 Appointment [facility] [place] Showing future appointments within next 90 days and meeting all other requirements documented in this encounter Plan of Treatment Upcoming Encounters Date Type Department Care Team (Late st Contact Info) Description 11/27/2025 2:00 PM CREEL OPERATOR [facility] [address] [place] [address] Carlos Venegas MD [address] [place] [address] 12/03/2025 10:00 AM CREEL OPERATOR Office Visit [facility] - Primary Care - [place] [address] [place] [address] Pierre Betancourt MD [address] [place] [address] documented as of this encounter Visit Diagnoses Not on filedocumented in this encounter Additional Health Concerns Assessment Noted Time PHQ-9 Depression Total Score: 1 07/25/20 22 9:00 AM CDT documented as of this encounter Care Teams Ultrasonic Cleaner Relationship Specialty Start Date End Date Pierre Betancourt MD PCP - General Internal Medicine 12/21/19 Carlos Venegas MD [address] [place] [address] Consulting Physician Neurology 07/30/24 documented as of this encounter
--- OUTSIDE RECORDS SUMMARY | 2025-06-24 09:35 | XMS_ITS | Encounter Summary ---
Author Organization [facility] Address [address] [place] [address] Phone Care Team Providers Care Pediatric Allergist Name Role Phone Pierre Betancourt MD Primary Care Provider Carlos Venegas MD Unavailable [phone] Reason for Visit * Reason Comments Medication Refill Encounter Details Date Type Department Care Team (Late st Contact Info) Description 02/15/2024 Refill [facility] - Internal Medicine - [place] [address] [place] [address] Pierre Betancourt MD [address] [place] [address] Medication Refill Social History Tobacco Use Types Packs/Day Years Used Date Smoking Tobacco: Never Passive Smoke Exposure: Never Smokeless Tobacco: Never Alcohol Use Standard Drinks/Week Comments Not Currently 0 (1 standard drink = 0.6 oz pur e alcohol) [facility] Utilities Answer Date Recorded In the past 12 months has [employer] electric, gas, oil, or water company threatened [...] often do you attend chur ch or rastafari services? Never 12/18/2023 Do you belong to any clubs o r organizations such as taoist groups, unions, fraternal or athletic groups, or [...] Recorded Total Score - Questions 1-9 0 12/07 [facility] of Occupat ional Health - Occupational Stress [...] place to sleep or slept in a alf (including now)? No 12/18/2023 Education Answer Date [...] encounter Miscellaneous Notes * Telephone Encounter - Didi Yap RN - 02/16/2024 8:09 AM CDT Medication(s) refilled and signed per [facility] Chronic Medication Refill Standing Order for Pediatricand Adult Patients. Requested Prescriptions Pending Prescriptions Disp Refills fluticasone (FLONASE) 50 MCG/ACT Suspension [Pharmacy Med Name: FLUTICASONE PROP 50 MCG SPRAY] 48 mL 0 Sig: SPRAY 1 TO 2 SPRAYS IN EACH NOSTRIL ONCE DAILY DIRECTED Nasal Steroids Protocol Passed - 02/15/2024 5:40 PM Passed - Visit with relevant provider in past 12 months or upcoming 90 days Recent Visits Date Type Provider Dept 01/17/24 Office Visit [facility] [place] 12/19/23 [facility] [place] 10/11/23 Office Visit Henny Quinonez PAC [facility] [place] 09/14/23 Office Visit Pierre Betancourt MD [facility] [place] 06/12/23 Office Visit Pierre Betancourt MD [facility] [place] 03/09/23 Office Visit Pierre Betancourt MD [facility] [place] Showing recent visits within past 365 days and meeting all other requirements Future Appointments Date Type Provider Dept 03/21/24 Appointment [facility] [place] Showing future appointments within next 90 days and meeting all other requirements documented in this encounter Plan of Treatment Upcoming Encounters Date Type Department Care Team (Late st Contact Info) Description 11/27/2025 2:00 PM MANAGER QUALITY COMPLIANCE Office Visit [facility] - Neurology [facility] [address] [place] [address] Carlos Venegas MD [address] [place] [address] 12/03/2025 10:00 AM MANAGER QUALITY COMPLIANCE Office Visit [facility] - Primary Care - [place] [address] [place] [address] Pierre Betancourt MD [address] [place] [address] documented as of this encounter Visit Diagnoses Not on filedocumented in this encounter Additional Health Concerns Assessment Noted Time PHQ-9 Depression Total Score: 0 12/19/19 24 3:06 PM MANAGER QUALITY COMPLIANCE documented as of this encounter Care Teams Pediatric Allergist Relationship Specialty Start Date End Date Pierre Betancourt MD PCP - General Internal Medicine 12/21/19 Carlos Venegas MD [address] [place] [address] Consulting Physician Neurology 07/30/24 documented as of this encounter
--- OUTSIDE RECORDS SUMMARY | 2025-06-24 09:35 | XMS_ITS | Encounter Summary ---
Author Organization [facility] Address [address] [place] [address] Phone Care Team Providers Care Runstitching Machine Operator Name Role Phone Pierre Betancourt MD Primary Care Provider Carlos Venegas MD Unavailable [phone] Reason for Visit * Reason Comments Medication Refill Encounter Details Date Type Department Care Team (Late st Contact Info) Description 03/29/2021 Refill [facility] Medical [facility] - Internal Medicine - [place] [address] [place] [address] Pierre Betancourt MD [address] [place] [address] Medication Refill Social History Tobacco Use Types Packs/Day Years Used Date Smoking Tobacco: Never Smokeless Tobacco: Never Alcohol Use Standard Drinks/Week Comments Not Currently 0 (1 standard drink = 0.6 oz pur e alcohol) PHQ-2 Answer Date Recorded Total Score - Questions 1-9 1 08/06 Comments No Sex and Gender Information Value Date Recorded Sex Assigned at Not on file Legal Sex Female 12:17 AM CDT Gender Identity Not on file Sexual Orientation Not on file documented as of this encounter Miscellaneous Notes * Telephone Encounter - Mikala Rhodes RN - 03/29/2021 10:03 AM CDT Please review and sign. documented in this encounter Plan of Treatment Upcoming Encounters Date Type Department Care Team (Late st Contact Info) Description 11/27/2025 2:00 PM VP FOUNDATION Office Visit [facility] - Neurology [facility] [address] [place] [address] Carlos Venegas MD [address] [place] [address] 12/03/2025 10:00 AM VP FOUNDATION Office Visit [facility] - Primary Care - [place] [address] [place] [address] Pierre Betancourt MD [address] [place] [address] documented as of this encounter Visit Diagnoses Not on filedocumented in this encounter Additional Health Concerns Infection Onset Date Last Indicated Resolved Time COVID - 19 11/02/2021 11/02/2021 11/22/2021 12:1 6 AM VP FOUNDATION Assessment Noted Time PHQ-9 Depression Total Score: 1 08/20/20 20 3:00 PM CDT documented as of this encounter Care Teams Runstitching Machine Operator Relationship Specialty Start Date End Date Pierre Betancourt MD PCP - General Internal Medicine 12/21/19 Carlos Venegas MD [address] [place] [address] Consulting Physician Neurology 07/30/24 documented as of this encounter
--- OUTSIDE RECORDS SUMMARY | 2025-06-24 09:35 | XMS_ITS | Encounter Summary ---
Author Organization [facility] Address [address] [place] [address] Phone Care Team Providers Care Licensed Nuclear Control Room Operator Name Role Phone Pierre Betancourt MD Primary Care Provider Carlos Venegas MD Unavailable Reason for Visit * Reason Comments Medication Refill Encounter Details Date Type Department Care Team (Late st Contact Info) Description 04/26/2021 Refill [facility] - Internal Medicine - [place] [address] [place] [address] Pierre Betancourt MD [address] [place] [address] Medication Refill Social History Tobacco Use Types [...] Telephone Encounter - Mikala Rhodes RN - 04/27/2021 8:01 AM CDT Please review and sign. documented in this encounter Plan of Treatment Upcoming Encounters Date Type Department Care Team (Late st Contact Info) Description 11/27/2025 2:00 PM JEWELRY CONSULTANT Office Visit [facility] - Neurology - [place] [address] [place] [address] Carlos Venegas MD [address] [place] [address] 12/03/2025 10:00 AM JEWELRY CONSULTANT Office Visit [facility] - Primary Care - [place] [address] [place] [address] Pierre Betancourt MD [address] [place] [address] documented as of this encounter Visit Diagnoses Not on filedocumented in this encounter Additional Health Concerns Infection Onset Date Last Indicated Resolved Time COVID - 19 11/02/2021 11/02/2021 11/22/2021 12:1 6 AM JEWELRY CONSULTANT Assessment Noted Time PHQ-9 Depression Total Score: 1 08/20/20 20 3:00 PM CDT documented as of this encounter Care Teams Licensed Nuclear Control Room Operator Relationship Specialty Start Date End Date Pierre Betancourt MD PCP - General Internal Medicine 12/21/19 Carlos Venegas MD [address] [place] [address] Consulting Physician Neurology 07/30/24 documented as of this encounter
--- OUTSIDE RECORDS SUMMARY | 2025-06-24 09:35 | XMS_ITS | Encounter Summary ---
Author Organization [facility] Address [address] [place] [address] Phone Care Team Providers Care Machine Tool Electrician Name Role Phone Pierre Betancourt MD Primary Care Provider [phone] Carlos Venegas MD Unavailable [phone] Reason for Visit * Reason Comments Medication Refill Encounter Details Date Type Department Care Team (Late st Contact Info) Description 04/26/2021 Refill [facility] - Internal Medicine - [place] [address] [place] [address] Henny Quinonez, [facility] [address] [place] [address] Medication Refill Social History Tobacco Use Types [...] Telephone Encounter - Mikala Rhodes RN - 04/28/2021 9:44 AM CDT Please review and sign. documented in this encounter Plan of Treatment Upcoming Encounters Date Type Department Care Team (Late st Contact Info) Description 11/27/2025 2:00 PM SOCIAL MEDIA EDITOR Office Visit [facility] - Neurology - [place] [address] [place] [address] Carlos Venegas MD [address] [place] [address] 12/03/2025 10:00 AM SOCIAL MEDIA EDITOR Office Visit [facility] - Primary Care - [place] [address] [place] [address] Pierre Betancourt MD [address] [place] [address] documented as of this encounter Visit Diagnoses Not on filedocumented in this encounter Additional Health Concerns Infection Onset Date Last Indicated Resolved Time COVID - 19 11/02/2021 11/02/2021 11/22/2021 12:1 6 AM SOCIAL MEDIA EDITOR Assessment Noted Time PHQ-9 Depression Total Score: 1 08/20/20 20 3:00 PM CDT documented as of this encounter Care Teams Machine Tool Electrician Relationship Specialty Start Date End Date Pierre Betancourt MD PCP - General Internal Medicine 12/21/19 Carlos Venegas MD [address] [place] [address] Consulting Physician Neurology 07/30/24 documented as of this encounter
--- OUTSIDE RECORDS SUMMARY | 2025-06-24 09:35 | XMS_ITS | Encounter Summary ---
Author Organization [facility] Address [address] [place] [address] Phone Care Team Providers Care Repairer Controller Tester Name Role Phone Pierre Betancourt MD Primary Care Provider [phone] Carlos Venegas MD Unavailable Reason for Visit * Reason Comments Medication Refill Encounter Details Date Type Department Care Team (Late st Contact Info) Description 04/04/2024 Refill [facility] Group - Internal Medicine - [place] [address] [place] [address] Pierre Betancourt MD [address] [place] [address] Medication Refill Social History Tobacco Use Types Packs/Day Years Used Date Smoking Tobacco: Never Passive Smoke Exposure: Never Smokeless Tobacco: Never Alcohol Use Standard Drinks/Week Comments Not Currently 0 (1 standard drink = 0.6 oz pur e alcohol) [facility] Utilities Answer Date Recorded In the past 12 months has [employer] electric, gas, oil, or water company threatened [...] often do you attend chur ch or yazdanism services? Never 12/18/2023 Do you belong to any clubs o r organizations such as tenriism groups, unions, fraternal or athletic groups, or [...] Total Score - Questions 1-9 0 12/07 [facility] of Occupat ional Health - [...] place to sleep or slept in a retirement (including now)? No 12/18/2023 Education Answer Date [...] Telephone Encounter - Christa Martínez RN - 04/04/2024 1:29 PM CDT Medication(s) refilled and signed per [facility] Chronic Medication Refill Standing Order for Pediatricand Adult Patients. Requested Prescriptions Pending Prescriptions Disp Refills semaglutide,0.25 or 0.5MG/DOS, (Ozempic, 0.25 or 0.5 MG/DOSE,) 2 MG/3ML Solution Pen-injector 9 mL 0 Sig: INJECT 0.5MG SUBCUTANEOUSLY EVERY WEEK GLP-1 Agonists Protocol Passed - 04/04/2024 1:08 PM Passed - Lipid panel result on file in past 12 months LDL Date Value Ref Range Status 12/12/2023 137 (H) <130 mg/dL Final HDL CHOLESTEROL Date Value Ref Range Status 12/12/2023 55 >40 mg/dL Final CHOLESTEROL Date Value Ref Range Status 12/12/2023 210 (H) <200 mg/dL Final TRIGLYCERIDES Date Value Ref Range Status 12/12/2023 92 <150 mg/dL Final VLDL Date Value Ref Range Status 12/12/2023 18 10 - 50 mg/dL Final CHOL/HDL RATIO Date Value Ref Range Status 12/12/2023 3.8 0.0 - 4.4 Final NON-HDL CHOLESTEROL Date Value Ref Range Status 12/12/2023 155 (H) <130 mg/dL Final Passed - Visit with relevant provider in past 6 months or upcoming 90 days Recent Visits Date Type Provider Dept 01/17/24 Office Visit Pierre Betanc[facility] MD [facility] [place] 12/19/23 Office Visit Pierre Betancourt MD [facility] [place] 10/11/23 Office Visit Henny Quinonez PAC [facility] [place] Showing recent visits within past 182 days and meeting all other requirements Future Appointments Date Type Provider Dept 04/17/24 Appointment Pierre Betancourt MD [facility] [place] Showing future appointments within next 90 days and meeting all other requirements Passed - HgA1C result on record in past 6 months HGB-A1C Date Value Ref Range Status 03/09/2023 6.5 (A) 4 - 6 % Final HGB-A1C Date Value Ref Range Status 12/12/2023 5.8 4.0 - 6.0 % Final Passed - GFR on record in past 6 months GFR, EST. NONAFRICAN Date Value Ref Range Status 12/12/2023 >60 >=60 Final documented in this encounter Plan of Treatment Upcoming Encounters Date Type Department Care Team (Late st Contact Info) Description 11/27/2025 2:00 PM MARKETING CAMPAIGN ANALYST Office Visit [facility] - Neurology - [place] [address] [place] [address] Carlos Venegas MD [address] [place] [address] 12/03/2025 10:00 AM MARKETING CAMPAIGN ANALYST Office Visit [facility] - Primary Care - [place] [address] [place] [address] Pierre Betancourt MD [address] [place] [address] documented as of this encounter Visit Diagnoses Not on filedocumented in this encounter Additional Health Concerns Assessment Noted Time PHQ-9 Depression Total Score: 0 12/19/19 24 3:06 PM MARKETING CAMPAIGN ANALYST documented as of this encounter Care Teams Repairer Controller Tester Relationship Specialty Start Date End Date Pierre Betancourt MD PCP - General Internal Medicine 12/21/19 Carlos Venegas MD [address] [place] [address] Consulting Physician Neurology 07/30/24 documented as of this encounter
--- OUTSIDE RECORDS SUMMARY | 2025-06-24 09:35 | XMS_ITS | Encounter Summary ---
Author Organization [facility] Address [address] [place] [address] Phone Care Team Providers Care Corporate Attorney Name Role Phone Pierre Betancourt MD Primary Care Provider Carlos Venegas MD Unavailable Reason for Visit * Reason Comments Medication Refill Encounter Details Date Type Department Care Team (Late st Contact Info) Description 01/07/2024 Refill [facility] - Internal Medicine - [place] [address] [place] [address] Pierre Betancourt MD [address] [place] [address] Medication Refill Social History Tobacco Use Types Packs/Day Years Used Date Smoking Tobacco: Never Passive Smoke Exposure: Never Smokeless Tobacco: Never Alcohol Use Standard Drinks/Week Comments Not Currently 0 (1 standard drink = 0.6 oz pur e alcohol) [facility] Utilities Answer Date Recorded In the past 12 months has [employer] [place] electric, gas, oil, or water company threatened [...] often do you attend chur ch or temple services? Never 12/18/2023 Do you belong to any clubs o r organizations such as druze groups, unions, fraternal or athletic groups, or [...] Total Score - Questions 1-9 0 12/07 [facility] - Occupational Stress [...] place to sleep or slept in a detention (including now)? No 12/18/2023 Education Answer Date [...] Telephone Encounter - Christa Martínez RN - 01/08/2024 8:21 AM CST Medication(s) refilled and signed per [facility] Chronic Medication Refill Standing Order for Pediatricand Adult Patients. Requested Prescriptions Pending Prescriptions Disp Refills albuterol 108 (90 Base) MCG/ACT Aerosol Solution [Pharmacy Med Name: ALBUTEROL HFA 90 MCG INHALER] 18 g 1 Sig: INHALE ONE TO TWO PUFFS BY MOUTH EVERY 6 HOURS NEEDED FOR WHEEZING Short Acting Inhaled Beta-Agonists Protocol Passed - 01/07/2024 1:55 PM Passed - Visit with relevant provider in past 12 months or upcoming 90 days Recent Visits Date Type Provider Dept 12/19/23 Office Visit [facility] 10/11/23 Office Visit Henny Quinonez [facility] 09/14/23 Office Visit Pierre Betancourt MD [facility] [place] 06/12/23 Office Visit Pierre Betancourt MD [facility] [place] 03/09/23 Office Visit Pierre Betancourt MD [facility] [place] Showing recent visits within past 365 days and meeting all other requirements Future Appointments Date Type Provider Dept 01/17/24 Appointment Pierre Betancourt MD [facility] [place] 03/21/24 Appointment Pierre Betancourt MD [facility] [place] Showing future appointments within next 90 days and meeting all other requirements ED PROGRAM TEACHER documented in this encounter Plan of Treatment Upcoming Encounters Date Type Department Care Team (Late st Contact Info) Description 11/27/2025 2:00 PM GIFTED PROGRAM TEACHER Office Visit [facility] - Neurology [facility] [address] [place] [id number] Carlos Venegas MD [address] [place] [address] 12/03/2025 10:00 AM GIFTED PROGRAM TEACHER Office Visit [facility] - Primary Care - [place] [address] [place] [id number] Pierre Betancourt MD [address] [place] [address] documented as of this encounter Visit Diagnoses Not on filedocumented in this encounter Additional Health Concerns Assessment Noted Time PHQ-9 Depression Total Score: 0 12/19/19 3:06 PM GIFTED PROGRAM TEACHER documented as of this encounter Care Teams Corporate Attorney Relationship Specialty Start Date End Date Pierre Betancourt MD PCP - General Internal Medicine 12/21/19 Carlos Venegas MD [address] [place] [address] Consulting Physician Neurology 07/30/24 documented as of this encounter
--- OUTSIDE RECORDS SUMMARY | 2025-06-24 09:35 | XMS_ITS | Encounter Summary ---
Author Organization [facility] Address [address] [place] [address] Phone Care Team Providers Care Career Development Associate Name Role Phone Pierre Betancourt MD Primary Care Provider Carlos Venegas MD Unavailable [phone] Reason for Visit * Reason Comments Medication Refill Encounter Details Date Type Department Care Team (Late st Contact Info) Description 03/07/2024 Refill [facility] - Internal Medicine - [place] [address] [place] [address] Pierre Betancourt MD [address] [place] [address] Medication Refill Social History Tobacco Use Types Packs/Day Years Used Date Smoking Tobacco: Never Passive Smoke Exposure: Never Smokeless Tobacco: Never Alcohol Use Standard Drinks/Week Comments Not Currently 0 (1 standard drink = 0.6 oz pur e alcohol) [facility] Utilities Answer Date Recorded In the past 12 months has [employer] electric, gas, oil, or water company threatened [...] often do you attend chur ch or rastafarian services? Never 12/18/2023 Do you belong to any clubs o r organizations such as worship groups, unions, fraternal or athletic groups, or [...] Total Score - Questions 1-9 0 12/07 [facility] of Occupat ional Health - Occupational Stress [...] place to sleep or slept in a fci (including now)? No 12/18/2023 Education Answer Date [...] Telephone Encounter - Christa Martínez RN - 03/07/2024 4:12 PM CDT Medication failed the protocol, provider to review and approve the medication order if appropriate. Requested Prescriptions Pending Prescriptions Disp Refills magnesium oxide (MAG-OX) 400 (240 Mg) MG Tablet [Pharmacy Med Name: MAGNESIUM OXIDE 400 MG TABLET] 90 Tablet 1 Sig: TAKE 1 TABLET BY MOUTH DAILY Minerals Magnesium Supplementation Protocol Failed - 03/07/2024 4:04 PM Failed - Magnesium on record in past 12 months No results found for: MAGNESIUM Passed - Visit with relevant provider in past 12 months or upcoming 90 days Recent Visits Date Type Provider Dept 01/17/24 Office [facility] [place] [facility]23 [facility] [place] [facility]/11[facility]23 Office [facility] [place] 09/14/23 Office [facility] [place] [facility]/12/23 Office [facility] [place] 03/09/23 Office Visit Pierre Betancourt MD [facility] [place] Showing recent visits within past 365 days and meeting all other requirements Future Appointments Date Type Provider Dept 03/21/24 Appointment Pierre Betancourt MD [facility] [place] Showing future appointments within next 90 days and meeting all other requirements documented in this encounter Plan of Treatment Upcoming Encounters Date Type Department Care Team (Late st Contact Info) Description 11/27/2025 2:00 PM EMAIL CAMPAIGN MANAGER Office Visit [facility] - Neurology [facility] [address] [place] [phone] Carlos Venegas MD [address] [place] [phone] 12/03/2025 10:00 AM EMAIL CAMPAIGN MANAGER Office Visit [facility] - Primary Care - [place] [address] [place] [phone] Pierre Betancourt MD [address] [place] [address] documented as of this encounter Visit Diagnoses Not on filedocumented in this encounter Additional Health Concerns Assessment Noted Time PHQ-9 Depression Total Score: 0 12/19/19 24 3:06 PM EMAIL CAMPAIGN MANAGER documented as of this encounter Care Teams Career Development Associate Relationship Specialty Start Date End Date Pierre Betancourt MD PCP - General Internal Medicine 12/21/19 Carlos Venegas MD [address] [place] [phone] Consulting Physician Neurology 07/30/24 documented as of this encounter
--- OUTSIDE RECORDS SUMMARY | 2025-06-24 09:35 | XMS_ITS | Encounter Summary ---
Author Organization [facility] Address [address] [place] [address] Phone Care Team Providers Care Clinical Psychology Teacher Name Role Phone Pierre Betancourt MD Primary Care Provider [phone] Carlos Venegas MD Unavailable [phone] Reason for Visit * Reason Comments Medication Refill Encounter Details Date Type Department Care Team (Late st Contact Info) Description 03/30/2024 Refill [facility] - Internal Medicine - [place] [address] [place] [address] Pierre Betancourt MD [address] [place] [address] Medication Refill Social History Tobacco Use Types Packs/Day Years Used Date Smoking Tobacco: Never Passive Smoke Exposure: Never Smokeless Tobacco: Never Alcohol Use Standard Drinks/Week Comments Not Currently 0 (1 standard drink = 0.6 oz pur e alcohol) [facility] Utilities Answer Date Recorded In the past 12 months has [employer] electric, gas, oil, or water company threatened [...] often do you attend chur ch or orthodoxy services? Never 12/18/2023 Do you belong to any clubs o r organizations such as religion groups, unions, fraternal or athletic groups, or [...] Total Score - Questions 1-9 0 12/07 [facility] of Occupat ional Health [...] place to sleep or slept in a half-way (including now)? No 12/18/2023 Education Answer Date [...] Telephone Encounter - Christa Martínez RN - 04/02/2024 9:51 AM CDT Medication(s) refilled and signed per [facility] Chronic Medication Refill Standing Order for Pediatricand Adult Patients. Requested Prescriptions Pending Prescriptions Disp Refills albuterol 108 (90 Base) MCG/ACT Aerosol Solution [Pharmacy Med Name: ALBUTEROL HFA 90 MCG INHALER] 18 g 1 Sig: INHALE 1 TO 2 PUFFS BY MOUTH EVERY 6 HOURS NEEDED FOR WHEEZING Short Acting Inhaled Beta-Agonists Protocol Passed - 03/30/2024 4:06 PM Passed - Visit with relevant provider in past 12 months or upcoming 90 days Recent Visits Date Type Provider Dept 01/17/24 Office Visit Pierre Betancourt MD [facility] 12/19/23 Office Visit Pierre Betancourt MD [facility] 10/11/23 Office Visit Henny Quinonez PAC [facility] [place] 09/14/23 Office Visit Pierre Betancourt MD [facility] [place] 06/12/23 Office Visit Pierre Betancourt MD [facility] [place] Showing recent visits within past 365 days and meeting all other requirements Future Appointments Date Type Provider Dept 04/17/24 Appointment Pierre Betancourt MD [facility] [place] Showing future appointments within next 90 days and meeting all other requirements documented in this encounter Plan of Treatment Upcoming Encounters Date Type Department Care Team (Late st Contact Info) Description 11/27/2025 2:00 PM COLOR PRINT INSPECTOR Office Visit [facility] - Neurology [facility] [address] [place] [address] Carlos Venegas MD [address] [place] [phone] 12/03/2025 10:00 AM COLOR PRINT INSPECTOR Office Visit [facility] - Primary Care - [place] [address] [place] [phone] Pierre Betancourt MD [address] [place] [address] documented as of this encounter Visit Diagnoses Not on filedocumented in this encounter Additional Health Concerns Assessment Noted Time PHQ-9 Depression Total Score: 0 12/19/19 24 3:06 PM COLOR PRINT INSPECTOR documented as of this encounter Care Teams Clinical Psychology Teacher Relationship Specialty Start Date End Date Pierre Betancourt MD PCP - General Internal Medicine 12/21/19 Carlos Venegas MD [address] [place] [phone] Consulting Physician Neurology 07/30/24 documented as of this encounter
--- OUTSIDE RECORDS SUMMARY | 2025-06-24 09:35 | XMS_ITS | Clinical Summary ---
Author Organization [facility] [place] Address [address] [place] [address] Phone Care Team Providers Care Landscape Specialist Name Role Phone Pierre Betancourt MD Primary Care Provider Carlos Venegas MD Unavailable Allergies Active Allergy Reactions Criticality Noted Date Comments Iodinated Contrast Media Unknown 04/26/2011 Montelukast Sodium Other (see Comments) 011 BODY ACHES Medications Krill Oil 1000 MG Capsule every morning. 11/14/19 20 Active Xiidra 5 % SolutionIndic ations:Dry Eye Syndrome Indications: Drying and Inflammation of Cornea and Conjunctiva of Eyes 07/27/20 20 Active Cholecalcifer ol (VITAMIN D3 PO) Take 125 mcg by mouth every morning. 2 tabs Active fluticasone (FLONASE) 50 MCG/ACT Suspension SPRAY 1 TO 2 SPRAYS IN EACH NOSTRIL ONCE DAILY DIRECTED 48 mL 1 04/17/20 24 Active Blood Glucose Monitoring Suppl (D-Care Glucometer) w/Device Kit Use to check bl. Sugar once a day. DX-Type 2 DM- non insulin dep 1 Kit 08/01/20 24 Active Glucose Blood Strip Use to check bl. Sugar once a day. DX-Type 2 DM- non insulin dep 100 Strip 5 08/01/20 24 Active albuterol 108 (90 Base) MCG/ACT Aerosol Solution INHALE ONE TO TWO PUFFS BY MOUTH EVERY 6 HOURS NEEDED FOR WHEEZING 18 g 1 08/05/20 24 Active fluticasone-s almeterol (ADVAIR) 250-50 MCG/ACT AEROSOL POWDER, BREATH ACTIVATED take 1 Puff by inhalation 2 times daily. 180 Each 1 11/21/19 25 Active meloxicam (MOBIC) 7.5 MG Tablet TAKE 1 TABLET BY MOUTH DAILY NEEDED FOR MODERATE OR MORE SEVERE PAIN 100 Tablet 2 02/07/20 25 Active estradiol (ESTRACE) 0.1 MG/GM Cream APPLY 1 GRAM VAGINALLY NIGHTLY FOR 2 TO 3 WEEKS, THEN DECREASE TO 2-3 TIMES WEEKLY 01/26/20 25 Active VITAMIN E PO Take by mouth. Ac tive ALPRAZolam (XANAX) 0.25 MG TabletIndicat ions:Generali zed anxiety disorder Take 1 Tablet by mouth Daily as needed for Anxiety. 30 Tablet 2 06/02/20 25 Active magnesium oxide (MAG-OX) 400 (240 Mg) MG Tablet Take 1 Tablet by mouth daily. 90 Tablet 1 06/02/20 25 Active meclizine (ANTIVERT) 12.5 MG Tablet Take 1 Tablet by mouth every 6 hours as needed for Dizziness. 90 Tablet 06/02/20 25 Active Ozempic, 1 MG/DOSE, 4 MG/3ML Solution Pen-injector 1 mg by Subcutaneous route once a week. 12 mL 1 06/02/20 25 Active potassium chloride SA (KLORCON M) 20 MEQ Tablet Controlled Release Take 1 Tablet by mouth daily. 100 Tablet 2 06/02/20 25 Active pravastatin (PRAVACHOL) 20 MG Tablet Take 1 Tablet by mouth every evening. 30 Tablet 06/02/20 25 Active triamterene-h ydrochlorothi azide (MAXZIDE) 75-50 MG Tablet Take 0.5 Tablets by mouth daily. 45 Tablet 1 06/02/20 25 Active metFORMIN (GLUCOPHAGE) 500 MG Tablet Take 1 Tablet by mouth 2 times daily (with meals). 180 Tablet 3 06/02/20 25 Active amitriptyline (ELAVIL) 25 MG TabletIndicat ions:Vestibul ar migraine Take 1 tablet by mouth nightly 90 Tablet 06/20/20 Active meclizine (ANTIVERT) 12.5 MG Tablet Take 1 Tablet by mouth every 6 hours as needed for Dizziness. 90 Tablet 11/21/19 Discontinued(R eorder) triamterene-h ydrochlorothi azide (MAXZIDE) 75-50 MG Tablet Take 0.5 Tablets by mouth daily. 45 Tablet 1 12/30/19 25 025 Discontinued(R eorder) potassium chloride SA (KLORCON M) 20 MEQ Tablet Controlled Release TAKE 1 TABLET BY MOUTH DAILY 100 Tablet 2 02/01/20 025 Discontinued(R eorder) metFORMIN (GLUCOPHAGE) 1000 MG Tablet TAKE ONE-HALF TABLET BY MOUTH TWICE DAILY 100 Tablet 2 02/06/20 25 Discontinued(D ose adjustment) ALPRAZolam (XANAX) 0.25 MG TabletIndicat ions:Generali zed anxiety disorder Take 1 Tablet by mouth Daily as needed for Anxiety. 30 Tablet 2 02/21/20 25 025 Discontinued(R eorder) magnesium oxide (MAG-OX) 400 (240 Mg) MG Tablet Take 1 Tablet by mouth daily. 90 Tablet 1 02/21/20 Discontinued(R eorder) Ozempic, 1 MG/DOSE, 4 MG/3ML Solution Pen-injector 1 mg by Subcutaneous route once a week. 12 mL 1 02/21/20 Discontinued(R eorder) amitriptyline (ELAVIL) 25 MG TabletIndicat ions:Vestibul ar migraine Take 1 Tablet by mouth nightly. 90 Tablet 03/21/20 25 025 Discontinued pravastatin (PRAVACHOL) 20 MG Tablet TAKE 1 TABLET BY MOUTH ONCE DAILY IN THE EVENING 30 Tablet 05/23/20 25 Discontinued(R eorder) nitrofurantoi n, monohydrate-m acrocrystal, (MACROBID) 100 MG CapsuleIndica tions:Acute cystitis without hematuria Take 1 Capsule by mouth 2 times daily for 7 days. 14 Capsule 06/10/20 25 Active Problems Problem Noted Date Diagnosed Date Generalized osteoarthritis 08/01/2024 Other hyperlipidemia 12/19/2023 TMJ syndrome 03/09/2023 Mild persistent asthma without complication 05/06 Vertigo 02/15/2021 Arthralgia 11/20/2020 Type 2 diabetes mellitus wit h diabetic neuropathy, without long-term current use of insulin 06/30/2017 Essential hypertension, benign 04/26/2011 Migraine without aura, not i ntractable, without status migrainosus 04/26/2011 Resolved Problems Problem Noted Date Diagnosed Date Resolved Date Anxiety disorder 05/29/2017 08/01/2024 Encounters Date Type Department Care Team Description 06/20/2025 Refill [facility] [place] [address] [place] [phone] Carlos Venegas MD Medication Refill 06/12/2025 Results Follow-Up [facility] [address] [place] [address] Franny Burger, INTELLIGENCE CHIEF, ROCKET ENGINE TESTER POCT UA AUTOMATED W/O MICRO, CULTURE, URINE 06/10/2025 10:25 AM CDT Urgent Care Visit [facility] [address] [place] [address] Gerard Peralta, JULIA Acute cystitis without hematuria (Primary Dx); Dysuria Discharge Disposition: Discharged to home or Selfcare 06/10/2025 Telephone [facility] [address] [place] [address] Pierre Betancourt MD Medication Management 06/10/2025 Travel 06/10/2025 Nurse Triage [facility] [address] [place] [address] Pierre Betancourt MD Advice Only; Urinary Problem 06/02/2025 9:20 AM CDT Office Visit [facility] - [facility] - [place] [address] [place] [address] Pierre Betancourt MD Type 2 diabetes mellitus with diabetic neuropathy, without long-term current use of insulin (HCC) (Primary Dx); Generalized anxiety disorder; Essential hypertension, benign; Other hyperlipidemia; Mild persistent asthma without complication Discharge Disposition: Discharged to home or Selfcare 06/02/2025 Travel 05/24/2025 Refill [facility] [address] [place] [phone] Pierre Betancourt MD Medication Refill 05/23/2025 [facility] [address] [place] [phone] Pierre Betancourt MD Medication Refill 04/23/2025 Refill [facility] [address] [place] [address] iPerre Betancorut MD Medication Refill 04/20/2025 Results Follow-Up [facility] [address] [place] [address] Gerard Peralta, PAC POCT UA AUTOMATED W/O MICRO, CULTURE, URINE 04/18/2025 10:00 AM CDT Urgent Care Visit [facility] [address] [place] [address] Franny Burger, INTELLIGENCE CHIEF, ROCKET ENGINE TESTER Acute cystitis with hematuria (Primary Dx); Dysuria Discharge Disposition: Discharged to home or Selfcare 04/18/2025 Travel from Last 3 Months Immunizations Immunization Administration Dates Next Due Covid-19, Mrna, Lnp-s, PF, 1 00 mcg/0.5 mL Dose (Moderna) 01/06/2021,12/08/2020 Influenza Vaccine greater than 3 yrs 08/06/2019 Influenza Vaccine, Quadrivalent, PF 11/0 07/2023,07/25/2022,07/14/2021,08/20,08/15/2018 Influenza, Seasonal, Injecta ble, Undefined 08/06/2019 Influenza,Split Virus,Trivalent,Injectable,PF 08/01/2024 Pneumococcal Vaccine Adult - 23 Valent 8 Pneumococcal conjugate PCV20 , polysaccharide DNA339 conjugate, adjuvant, PF 07/25/2022 Family History Medical History Relation Name Comments Heart Attack Brother Heart Disease Brother Leukemia/Lymphoma Brother Heart Attack Father Other-comment Father Blood clotts Heart Attack Mother Stroke Mother Breast Cancer Niece 1 Breast Cancer Niece 2 Breast Cancer Paternal Aunt 1 Breast Cancer Paternal Aunt 2 Breast Cancer Paternal Grandmother Heart Attack Sister Relation Name Status Comments Brother Alive Father Mother Niece 1 Niece 2 Paternal Aunt 1 Paternal Aunt 2 Paternal Grandmother Sister Alive Social History Tobacco Use Types Packs/Day Years Used Date Smoking Tobacco: Never Passive Smoke Exposure: Never Smokeless Tobacco: Never Tobacco Cessation:Counseling Given: No Alcohol Use Standard Drinks/Week Comments Not Currently 0 (1 standard drink = 0.6 oz pur e alcohol) [facility] Pinterestities Answer Date Recorded In the past 12 months has [employer], gas, oil, or water [employer] threatened to shut off services in your [...] week 11/20/2024 How often do you attend [facility] or faith services? Never 11/20/2024 Do you belong to any clubs o r organizations such as scientology groups, unions, fraternal or athletic groups, or [...] Total Score - Questions 1-9 0 05/07 [facility] - Occupational Stress Questionnaire Answer [...] place to sleep or slept in a long term (including now)? No 12/18/2023 Housing Stability Vital Sign Answer Erasmo e Recorded In the last 12 months, was t here a time when you were not able to pay the mortgage or rent on time? No 11/20/2024 In the past 12 months, how m any times have you moved where you were living? 0 11/20/2024 At any time in the past 12 m [place], were you homeless or living in a long term (including now)? No 11/20/2024 Education Answer Date [...] on file Sexual Orientation Not on file Last Filed Vital Signs Vital Sign Reading Time Taken Comments Blood Pressure 140/68 06/10/2025 10:28 AM CDT Pulse 74 06/10/2025 10:28 AM CDT Temperature 36.2 C (97.2 F) 06/10/2025 10:28 AM CDT Respiratory Rate 18 06/10/2025 10:28 AM CDT Oxygen Saturation 94% 06/10/2025 10:28 AM CDT Inhaled Oxygen Concentration - - Weight 86.6 kg (191 lb) 06/02/2025 9:15 AM CDT Height 160 cm (5' 3) 06/02/2025 9:15 AM CDT Body Mass Index 33.83 06/02/2025 9:15 AM CDT Plan of Treatment Upcoming Encounters Date Type Department Care Team (Late st Contact Info) Description 11/27/2025 2:00 PM KILN BURNER HELPER Office Visit [facility] - Neurology [facility] [address] [place] [address] Carlos Venegas MD [address] [place] [address] 12/03/2025 10:00 AM KILN BURNER HELPER Office Visit [facility] - [place] [address] [place] [phone] Pierre Betancourt MD [address] [place] [address] Health Maintenance Due Date Last Done Comments Hepatitis C Virus (HCV) Screening 1960 TdaP Immunization 1960 Cologuard 2004 Immunochemical Fecal Occult Blood 2004 Zoster Immunization (1 of 2) 2009 Respiratory Syncytial Virus (RSV) Immunization (Adult) (1 - Risk 60-74 years 1-dose series) 2019 Diabetes: Eye Exam 03/10/2024 03/10/2023, 05/31/2021 SARS-COV-2 Immunization ( season) 2024 01/06/2021, 12/08/2020 Influenza Immunization (#1) 07/07/202507/08, 09/14/2023, 07/25/2022, Additional history exists Diabetes: Hemoglobin A1c 08/27/2025 025, 11/21/2024, 08/01/2024, Additional history exists Colonoscopy 01/15/2026 01/15/2021 Colorectal Cancer Screening 01/15/2026 Diabetes: Nephropathy Screening 02/25/2026 02/25/2025, 02/25/2025, 01/03/2024, Additional history exists Mammogram 04/25/2026 04/25/2025, 04/06, 04/19/2023, Additional history exists Diabetes: Foot Exam 06/02/2026 06/02/2025, 04/17/2024, 03/09/2023 DEXA Bone Density 03/08/2027 03/08/2025, 11/27/2019 Pneumococcal Immunization (50+ years) Completed 07/25/2022, 08/15/2018 Pneumococcal Immunization Combined Discontinued 07/25/2022, 08/15/2018 Hepatitis B Immunization Aged Out No longer eligible based on patient's age to complete this topic Human Papillomavirus (HPV) Immunization Aged Out No longer eligible based on patient's age to complete this topic Meningococcal Immunization (ACWY) Aged Out No longer eligible based on patient's age to complete this topic Rotavirus Immunization Aged Out No lo nger eligible based on patient's age to complete this topic Procedures Procedure Name Priority Date/Time Associated Diagnosis Comments CULTURE, URINE Routine 06/10/2025 10:36 AM CDT Dysuria POCT UA AUTOMATED W/O MICRO Routine 06/10/2025 10:30 AM CDT Dysuria MAMMOGRAM BILATERAL GENERIC 04/25/2025 12:00 AM CDT CULTURE, URINE Routine 04/18/2025 10:10 AM CDT Dysuria POCT UA AUTOMATED W/O MICRO Routine 04/18/2025 10:00 AM CDT Dysuria JEAN CLAUDE BONE DENSITOMETRY AXIAL SKELETON Routine 03/08/2025 11:30 AM CDT Asymptomatic menopausal state UR MICROALBUMIN/CREATINI NE RATIO RANDOM Routine 02/25/2025 8:33 AM CDT Type 2 diabetes mellitus without complication, without long-term current use of insulin HEMOGLOBIN A1C W/ ESTIMATED GLUCOSE Routine 02/25/2025 8:33 AM CDT Type 2 diabetes mellitus without complication, without long-term current use of insulin HM DILATED EYE EXAM 03/10/2023 1 2:00 AM CDT from Last 3 Months or Most Recently Relevant to Health Maintenance Results * CULTURE, URINE (06/10/2025 10:36 AM CDT) Only the most recent of2 resultswithin the time period is included. CULTURE RESULTS Mixed Growth or 3 or More Organisms, Probable Collection Contamination, Suggest Repeat 06/11/2025 8:14 PM CDT [facility] Culture URINE SPECIMEN OBTAINED BY CLEAN CATCH PROCEDURE / Unknown Non-Phlebotomy Collection / Unknown 06/10/2025 10:36 AM CDT 06/10/2025 10:36 AM CDT us Gerard Peralta [facility] MICROBIOLOGY - GENERAL ORDERA BLES Final Result [facility] [address] [place] [address], [place] * (ABNORMAL) POCT UA AUTOMATED W/O MICRO (06/10/2025 10:30 AM CDT) Only the most recent of2 resultswithin the time period is included. POC UA SPECIFIC GRAVITY 1.025 URINE PH 6.0 5.0 - 9.0 POC URINE LEUKOCYTES 500 /uL(A) Negative Librado/uL POC URINE NITRITE Negative Negative POC URINE PROTEIN Trace(A) Negative mg/dL POC URINE GLUCOSE Negative Negative, Norm mg/dL POC URINE KETONE Negative Negative mg/dL POC URINE UROBILINOGEN 4 E.U./dL (mg/dL)(A) Norm, 0.2 E.U./dL (mg/dL), 1 E.U./dL (mg/dL) POC URINE BILIRUBIN Negative Negative mg/dL POC URINE BLOOD INSTRUMENT Negative Negative Marcial/uL POC URINE COLOR Yellow POC URINE CLARITY Clear Urine 06/10/2025 10:3 0 AM CDT Gerard Peralta PAC POINT OF CARE TESTING (MANUAL ) Final Result * MAMMOGRAM BILATERAL GENERIC (04/25/2025 12:00 AM CDT) 04/25/2025 us Provider Scan IMG MAMMO ORDERABLES Final Resul t SCAN * JEAN CLAUDE BONE DENSITOMETRY AXIAL SKELETON (03/08/2025 11:30 AM CDT) Anatomical Region Laterality Modality BODY N/A Computed Radiogr aphy 03/09/2025 9:59 AM CDT Impressions 03/09/2025 10:01 AM CDT IMPRESSION: Normal bone mass. REFERENCE: Bone mineral density: T-Score: Normal (T-score above or = -1.0) Low bone mass (T-score between -1.0 and -2.5) replaces the previously used term osteopenia Osteoporosis (T-score = or below -2.5) Z-Score: Within the expected range for age (Z-score above -2.0) Below the expected range for age (Z-score is -2.0 or below) Please see below follow up recommendations. Medical evaluation for secondary causes of low bone mineral density may be appropriate. FRAX is a World Health Organization validated fracture risk assessment tool that calculates a person's 10 year probability of a major osteoporosis related fracture and hip fracture. According to the National Osteoporosis Foundation guidelines, postmenopausal women and men age 50 or older with low bone mass and a 10 year probability of a major osteoporosis related fracture = or greater than 20% or a 10 year probability of a hip fracture = or greater than 3% should be considered for pharmacological treatment for the prevention of osteoporosis. For further information, including treatment recommendations, please refer to the 2019 ISCD Official Positions (http://www.iscd.org) and the NOF's Clinician's Guide to Prevention and Treatment of Osteoporosis (http://www.nof.org/professionals/clinical-guidelines) Narrative 03/09/2025 10:01 AM CDT EXAM DESCRIPTION: [facility] BONE DENSITOMETRY AXIAL SKELETON REASON FOR STUDY: 64 y/o year old F with given history of: Postmenopausal status. History rheumatoid arthritis. Advertising Operations Coordinator/Model: [employer] (S/N [id number]) Facility LSC value of 0.028 for the AP spine and 0.033 for the femur. CLINICAL INFORMATION: Current height: 63 inches Maximum height: 63 inches Weight: 189 pounds Risk factors: Rheumatoid arthritis. COMPARISON: None available FINDINGS: AP LUMBAR SPINE L1-L4: Total BMD is 1.424 g/cm2 T-score is 1.9 LEFT HIP: Total BMD is 1.228 g/cm2 T-score is 1.7 Femoral neck BMD is 1.095 g/cm2 T-score is 0.4 FRAX: FRAX not reported due to T-scores of hip, femoral neck and/or spine being at or above -1.0 (Normal). THIS IS AN ELECTRONICALLY VERIFIED FINAL REPORT 03/09/2025 9:59 AM - Electronically signed by Desiree Bassett M.D. TW: EDMUND Report ID: [id number] Reading Location: [id number] Procedure Note Desiree Bassett MD - 03/09/2025 EXAM DESCRIPTION: [facility] BONE DENSITOMETRY AXIAL SKELETON REASON FOR STUDY: 64 y/o year old F with given history of: Postmenopausal status. History rheumatoid arthritis. Advertising Operations Coordinator/Model: [employer] (S/N [id number]) Facility LSC value of 0.028 for the AP spine and 0.033 for the femur. CLINICAL INFORMATION: Current height: 63 inches Maximum height: 63 inches Weight: 189 pounds Risk factors: Rheumatoid arthritis. COMPARISON: None available FINDINGS: AP LUMBAR SPINE L1-L4: Total BMD is 1.424 g/cm2 T-score is 1.9 LEFT HIP: Total BMD is 1.228 g/cm2 T-score is 1.7 Femoral neck BMD is 1.095 g/cm2 T-score is 0.4 FRAX: FRAX not reported due to T-scores of hip, femoral neck and/or spine being at or above -1.0 (Normal). THIS IS AN ELECTRONICALLY VERIFIED FINAL REPORT 03/09/2025 9:59 AM - Electronically signed by Desiree Bassett M.D. TW: TW Report ID: [id number] Reading Location: [place] [address] IMPRESSION: Normal bone mass. REFERENCE: Bone mineral density: T-Score: Normal (T-score above or = -1.0) Low bone mass (T-score between -1.0 and -2.5) replaces the previously used term osteopenia Osteoporosis (T-score = or below -2.5) Z-Score: Within the expected range for age (Z-score above -2.0) Below the expected range for age (Z-score is -2.0 or below) Please see below follow up recommendations. Medical evaluation for secondary causes of low bone mineral density may be appropriate. FRAX is a World Health Organization validated fracture risk assessment tool that calculates a person's 10 year probability of a major osteoporosis related fracture and hip fracture. According to the National Osteoporosis Foundation guidelines, postmenopausal women and men age 50 or older with low bone mass and a 10 year probability of a major osteoporosis related fracture = or greater than 20% or a 10 year probability of a hip fracture = or greater than 3% should be considered for pharmacological treatment for the prevention of osteoporosis. For further information, including treatment recommendations, please refer to the 2019 ISCD Official Positions (http://www.iscd.org) and the NOF's Clinician's Guide to Prevention and Treatment of Osteoporosis (http://www.nof.org/professionals/clinical-guidelines) us Pierre Betancourt MD IMG DEXA ORDERABLES Final R esult * HEMOGLOBIN A1C W/ ESTIMATED GLUCOSE (02/25/2025 8:33 AM CDT) HGB-A1C 6.0 4.0 - 6.0 % 02/25/2025 5:51 PM CDT [facility] Est Average Glucose 125.5 mg/dL 02/25/2025 5:51 PM CDT [facility] Blood Venipuncture / Unknown 02/25/2025 8:33 AM CDT 02/25/2025 8:33 AM CDT Narrative [facility] - 02/25/2025 5:51 PM CDT HEMOGLOBIN A1C: DIABETIC PATIENTS: WELL-CONTROLLED: 6.2 - 7.0 INTERMEDIATE WELL-CONTROLLED: 7.0 - 9.0 POORLY-CONTROLLED: >9.0 Specimens containing greater than 5% of Hemoglobin F may result in lower than expected % HbA1C results. us Pierre Betancourt MD CHEMISTRY ORDERABLES Final Result [facility] [address] [place] [address] * UR MICROALBUMIN/CREATININE RATIO RANDOM (02/25/2025 8:33 AM CDT) Pathologist [facility] RAN UR MICROALBUMIN <0.50 mg/dL 02/25/2025 6:39 PM CDT [facility] Comment:No reference range h as been established. Consider Clinical Correlation. CREATININE URINE 57.0 mg/dL 02/26/20 6:39 PM CDT [facility] Comment:No reference range h as been established. Consider Clinical Correlation. ALB/CREAT RATIO 6:39 PM CDT [facility] Comment:Unable to calculate due to urine microalbumin concentration less than 0.5 mg/dL Urine Non-Phlebotomy Collection / Unknown 02/25/2025 8:33 AM CDT 02/25/2025 8:33 AM CDT us Pierre Betancourt MD URINE ORDERABLES Final Resu lt Performing Organization Address City/[facility]/ZIP Co de Phone Number [facility] [address] [place] [address] * HM DILATED EYE EXAM (03/10/2023 12:00 AM CDT) 03/10/2023 us Provider Scan PROCEDURE/MINOR SURGICAL ORDERAB LES Final Result Performing Organization Address City/[facility]/ZIP Co de Phone Number SCAN from Last 3 Months or Most Recently Relevant to Health Maintenance Insurance MEDICARE C [facility] Care Teams Landscape Specialist Relationship Specialty Start Date End Date Pierre Betancourt MD PCP - General Internal Medicine 12/21/19 Carlos Venegas MD [address] [place] [address] Consulting Physician Neurology 07/30/24
--- OUTSIDE RECORDS SUMMARY | 2025-06-24 09:35 | XMS_ITS | Encounter Summary ---
Author Organization [facility] Address [address] [place] [address] Phone Care Team Providers Care Heel Gummer Name Role Phone Pierre Betancourt MD Primary Care Provider Carlos Venegas MD Unavailable Reason for Visit * Reason Comments Medication Refill Encounter Details Date Type Department Care Team (Late st Contact Info) Description 02/17/2024 Refill [facility] - Internal Medicine - [place] [address] [place] [address] Pierre Betancourt MD [address] [place] [address] Medication Refill Social History Tobacco Use Types Packs/Day Years Used Date Smoking Tobacco: Never Passive Smoke Exposure: Never Smokeless Tobacco: Never Alcohol Use Standard Drinks/Week Comments Not Currently 0 (1 standard drink = 0.6 oz pur e alcohol) [facility] Utilities Answer Date Recorded In the past 12 months has [employer] electric, gas, oil, or water company threatened [...] often do you attend chur ch or roman catholic services? Never 12/18/2023 Do you belong to any clubs o r organizations such as shinto groups, unions, fraternal or athletic groups, or [...] Total Score - Questions 1-9 0 12/07 [facility] - Occupational [...] place to sleep or slept in a halfway (including now)? No 12/18/2023 Education Answer Date [...] encounter Miscellaneous Notes * Telephone Encounter - iDdi Yap RN - 02/17/2024 2:35 PM CDT PRN medication requires provider review Per nursing clinical judgement, provider to review and approve the medication(s) order(s) if appropriate. Requested Prescriptions Pending Prescriptions Disp Refills albuterol 108 (90 Base) MCG/ACT Aerosol Solution [Pharmacy Med Name: ALBUTEROL HFA 90 MCG INHALER] 18 g 1 Sig: INHALE 1 TO 2 PUFFS BY MOUTH EVERY 6 HOURS NEEDED FOR WHEEZING Short Acting Inhaled Beta-Agonists Protocol Passed - 02/17/2024 2:34 PM Passed - Visit with relevant provider in past 12 months or upcoming 90 days Recent Visits Date Type Provider Dept 01/17/24 Office Visit Pierre Betancourt MD [facility] 12/19/23 Office Visit Pierre Betancourt MD [facility] 10/11/23 Office Visit Henny [facility]onez, JULIA [facility] [place] 09/14/23 Office Visit Pierre Betancourt MD [facility] [place] 06/12/23 Office Visit Pierre Betancourt MD [facility] [place] 03/09/23 [facility] [place] Show[facility] recent visits within past 365 days and meeting all other requirements Future Appointments Date Type Provider Dept 03/21/24 Appointment Pierre Betancourt MD [facility] [place] Showing future appointments within next 90 days and meeting all other requirements documented in this encounter Plan of Treatment Upcoming Encounters Date Type Department Care Team (Late st Contact Info) Description 11/27/2025 2:00 PM TELETYPESETTER Office Visit [facility] - Neurology [facility] [address] [place] [address] Carlos Venegas MD [address] [place] [address] 12/03/2025 10:00 AM TELETYPESETTER Office Visit [facility] - Primary Care - [place] [address] [place] [address] Pierre Betancourt MD [address] [place] [address] documented as of this encounter Visit Diagnoses Not on filedocumented in this encounter Additional Health Concerns Assessment Noted Time PHQ-9 Depression Total Score: 0 12/19/19 24 3:06 PM TELETYPESETTER documented as of this encounter Care Teams Heel Gummer Relationship Specialty Start Date End Date Pierre Betancourt MD PCP - General Internal Medicine 12/21/19 Carlos Venegas MD [address] [place] [address] Consulting Physician Neurology 07/30/24 documented as of this encounter
[2025-06-24] MEDS: TETANUS,DIPHTHERIA,AC PERTUSSIS ADULT 0.5 ML (ADACEL) IM (09:49)
[2025-06-24 10:02] VITALS: BP 141/73; PULSE 72; RESP 16; O2SAT 95
--- OUTSIDE RECORDS SUMMARY | 2025-06-24 10:31 | XMS_ITS | Encounter Summary ---
Author Organization [facility] Address [address] [place] [address] Phone Care Team Providers Care White Washer Name Role Phone Pierre Betancourt MD Primary Care Provider Carlos Veneags MD Unavailable [phone] Encounter Details Date Type Department Care Team (Late st Contact Info) Description 06/12/2025 Results Follow-Up [facility] - [facility] - [place] [address] [place] [address] Franny Burger APRN, BELT BUCKLE MAKER [address] [place] [address] POCT UA AUTOMATED W/O MICRO, CULTURE, URINE Social History Tobacco Use Types Packs/Day Years Used Date Smoking Tobacco: Never Passive Smoke Exposure: Never Smokeless Tobacco: Never Alcohol Use Standard Drinks/Week Comments Not Currently 0 (1 standard drink = 0.6 oz pur e alcohol) [facility] Utilities Answer Date Recorded In the past 12 months has [employer] electric, gas, oil, or water company threatened [...] often do you attend chur ch or buddhism services? Never 11/20/2024 Do you belong to any clubs o r organizations such as zoroastrian groups, unions, fraternal or athletic groups, or [...] Total Score - Questions 1-9 0 05/07 [facility] - Occupational Stress Questionnaire Answer Date Recorded [...] place to sleep or slept in a custodial (including now)? No 12/18/2023 Housing Stability Vital Sign Answer Erasmo e Recorded In the last 12 months, was t here a time when you were not able to pay the mortgage or rent on time? No 11/20/2024 In the past 12 months, how m any times have you moved where you were living? 0 11/20/2024 At any time in the past [address] [facility], were you homeless or living in a custodial (including now)? No 11/20/2024 Education Answer Date [...] st Contact Info) Description 11/27/2025 2:00 PM LIVESTOCK SLAUGHTERER Office Visit [facility] - Neurology [facility] [address] [place] [address] Carlos Venegas MD [address] [place] [address] 12/03/2025 10:00 AM LIVESTOCK SLAUGHTERER Office Visit [facility] - Primary Care - [place] [address] [place] [address] Pierre Betancourt MD [address] [place] [address] documented as of this encounter Visit Diagnoses Not on filedocumented in this encounter Additional Health Concerns Assessment Noted Time PHQ-9 Depression Total Score: 0 06/02/20 25 9:17 AM CDT documented as of this encounter Care Teams White Washer Relationship Specialty Start Date End Date Pierre Betancourt MD PCP - General Internal Medicine 12/21/19 Carlos Venegas MD [address] [place] [phone] Consulting Physician Neurology 07/30/24 documented as of this encounter
--- OUTSIDE RECORDS SUMMARY | 2025-06-24 10:31 | XMS_ITS | Clinical Summary ---
Author Organization [facility] [place] Address [address] [place] [address] Phone Care Team Providers Care Carbon Paste Mixer Operator Name Role Phone Pierre Betancourt MD Primary Care Provider Carlos Venegas MD Unavailable [phone] Allergies Active Allergy Reactions Criticality Noted Date [...] Type Department Care Team Description 06/20/2025 Refill [facility] Neurology - [place] [address] [place] [address] Carlos Venegas MD Medication Refill 06/12/2025 Results Follow-Up [facility] [address] [place] [address] Franny Burger, HEAD BOOKKEEPER, PATENT EXAMINER POCT UA AUTOMATED W/O MICRO, CULTURE, URINE 06/10/2025 10:25 AM CDT Urgent Care Visit [facility] [address] [place] [address] Gerard Peralta, JULIA Acute cystitis without hematuria (Primary Dx); Dysuria Discharge Disposition: Discharged to home or Selfcare 06/10/[address] [facility] [address] [place] [address] Pierre Betancourt MD Medication Management 06/10/2025 Travel 06/10/2025 Nurse Triage [facility] Call Center [address] [place] [address] Pierre Betancourt MD Advice Only; Urinary Problem 06/02/2025 9:20 AM CDT Office Visit [facility] - Internal Medicine - [place] [address] [place] [address] Pierre Betancourt MD Type 2 diabetes mellitus with diabetic neuropathy, without long-term current use of insulin (HCC) (Primary Dx); Generalized anxiety disorder; Essential hypertension, benign; Other hyperlipidemia; Mild persistent asthma without complication Discharge Disposition: Discharged to home or Selfcare 06/02/2025 Travel 05/24/2025 Refill [facility] [address] [place] [address] Pierre Betancourt MD Medication Refill 05/23/2025 [facility] [address] [place] [address] Pierre Betancourt MD Medication Refill 04/23/2025 Refill [facility] [address] [place] [address] Pierre Betancourt MD Medication Refill 04/20/2025 Results Follow-Up [facility] [address] [place] [address] Gerard Peralta, PAC POCT UA AUTOMATED W/O MICRO, CULTURE, URINE 04/18/2025 10:00 AM CDT Urgent Care Visit [facility] [address] [place] [address] Franny Burger, HEAD BOOKKEEPER, PATENT EXAMINER Acute cystitis with hematuria (Primary Dx); Dysuria [...] Valent 8 Pneumococcal conjugate PCV20 , polysaccharide ADN340 conjugate, adjuvant, PF 07/25/2022 Family History Medical [...] drink = 0.6 oz pur e alcohol) [facility] [employer] Answer Date Recorded In the past 12 months has [employer], gas, oil, or water [employer] threatened to shut off services in your [...] week 11/20/2024 How often do you attend [facility] ch or yazidism services? Never 11/20/2024 Do you belong to any clubs o r organizations such as pentecostalism groups, unions, fraternal or athletic groups, or [...] Total Score - Questions 1-9 0 05/07 [facility] - Occupational Stress Questionnaire Answer Date [...] in a retirement (including now)? No 12/18/2023 Housing Stability Vital Sign Answer Erasmo e Recorded In the last 12 months, was t here a time when you were not able to pay the mortgage or rent on time? No 11/20/2024 In the past 12 months, how m any times have you moved where you were living? 0 11/20/2024 At any time in the past 12 m [facility], were you homeless or living in a retirement (including now)? No 11/20/2024 Education Answer Date [...] st Contact Info) Description 11/27/2025 2:00 PM MARINE ENGINE MACHINIST Office Visit [facility] - Neurology [facility] [address] [place] [address] Carlos Venegas MD [address] [place] [address] 12/03/2025 10:00 AM MARINE ENGINE MACHINIST Office Visit [facility] - Primary Care - [place] [address] [place] [address] Pierre Betancourt MD [address] [place] [address] Health Maintenance Due Date Last Done Comments [...] Contamination, Suggest Repeat 06/11/2025 8:14 PM CDT [facility] Culture URINE SPECIMEN OBTAINED BY CLEAN CATCH PROCEDURE / Unknown Non-Phlebotomy Collection / Unknown 06/10/2025 10:36 AM CDT 06/10/2025 10:36 AM CDT us Gerard Peralta [facility] MICROBIOLOGY - GENERAL ORDERA BLES Final Result [facility] [address] [place] [address], [place] * (ABNORMAL) POCT UA AUTOMATED W/O [...] Narrative 03/09/2025 10:01 AM CDT EXAM DESCRIPTION: [facility] BONE DENSITOMETRY AXIAL SKELETON REASON FOR STUDY: 64 y/o year old F with given history of: Postmenopausal status. History rheumatoid arthritis. [employer] Bi Developer/Model: [employer] (S/N [id number]) Facility LSC value of 0.028 for the [...] Desiree Bassett M.D. TW: EDMUND Report ID: [id number] Reading Location: [id number] Procedure Note Desiree Bassett MD - 03/09/2025 EXAM DESCRIPTION: [facility] BONE DENSITOMETRY AXIAL SKELETON REASON FOR STUDY: 64 y/o year old F with given history of: Postmenopausal status. History rheumatoid arthritis. [employer] Developer/Model: [employer] (S/N [id number]) Facility LSC value of 0.028 for the [...] Desiree Bassett M.D. TW: TW Report ID: [id number] Reading Location: [place] [address] IMPRESSION: Normal bone mass. REFERENCE: Bone mineral [...] - 6.0 % 02/25/2025 5:51 PM CDT [facility] Est Average Glucose 125.5 mg/dL 02/25/2025 5:51 PM CDT [facility] Blood Venipuncture / Unknown 02/25/2025 8:33 AM CDT 02/25/2025 8:33 AM CDT Narrative [facility] - 02/25/2025 5:51 PM CDT HEMOGLOBIN A1C: DIABETIC PATIENTS: WELL-CONTROLLED: 6.2 - 7.0 INTERMEDIATE WELL-CONTROLLED: 7.0 - 9.0 POORLY-CONTROLLED: >9.0 Specimens containing greater than 5% of Hemoglobin F may result in lower than expected % HbA1C results. us Pierre Betancourt MD CHEMISTRY ORDERABLES Final Result [facility] [address] [place] [address] * UR MICROALBUMIN/CREATININE RATIO RANDOM (02/25/2025 8:33 AM CDT) Pathologist [facility] RAN UR MICROALBUMIN <0.50 mg/dL 02/25/2025 6:39 PM CDT [facility] Comment:No reference range h as been established. Consider Clinical Correlation. CREATININE URINE 57.0 mg/dL 02/26/20 6:39 PM CDT [facility] Comment:No reference range h as been established. Consider Clinical Correlation. ALB/CREAT RATIO 6:39 PM CDT [facility] Comment:Unable to calculate due to urine microalbumin concentration less than 0.5 mg/dL Urine Non-Phlebotomy Collection / Unknown 02/25/2025 8:33 AM CDT 02/25/2025 8:33 AM CDT us Pierre Betancourt MD URINE ORDERABLES Final Resu lt Performing Organization Address City/[facility]/ZIP Co de Phone Number [facility] [address] [place] [address] * HM DILATED EYE EXAM (03/10/2023 12:00 AM CDT) 03/10/2023 us Provider Scan PROCEDURE/MINOR SURGICAL ORDERAB LES Final Result Performing Organization Address City/[facility]/ZIP Co de Phone Number SCAN from Last 3 Months or Most Recently Relevant to Health Maintenance Insurance MEDICARE C [facility] Care Teams Carbon Paste Mixer Operator Relationship Specialty Start Date End Date Pierre Betancourt MD PCP - General Internal Medicine 12/21/19 Carlos Venegas MD [address] [place] [address] Consulting Physician Neurology 07/30/24
--- OUTSIDE RECORDS SUMMARY | 2025-06-24 10:31 | XMS_ITS | Encounter Summary ---
Author Organization [facility] Address [address] [place] [address] Phone Care Team Providers Care Workers' Compensation Magistrate Name Role Phone Pierre Betancourt MD Primary Care Provider [phone] Carlos Venegas MD Unavailable [phone] Reason for Visit * Reason Comments Medication Refill Encounter Details Date Type Department Care Team (Late st Contact Info) Description 03/29/2021 Refill [facility] - Internal Medicine - [place] [address] [place] [address] Pierre Betancourt MD [address] [place] [address] Medication Refill Social History Tobacco Use Types [...] Contact Info) Description 11/27/2025 2:00 PM JEWELRY CASTING MODEL MAKER APPRENTICE Office Visit [facility] - Neurology [facility] [address] [place] [address] Carlos Venegas MD [address] [place] [address] 12/03/2025 10:00 AM JEWELRY CASTING MODEL MAKER APPRENTICE Office Visit [facility] - Primary Care - [place] [address] [place] [address] Pierre Betancourt MD [address] [place] [address] documented as of this encounter Visit Diagnoses Not on filedocumented in this encounter Additional Health Concerns Infection Onset Date Last Indicated Resolved Time COVID - 19 11/02/2021 11/02/2021 11/22/2021 12:1 6 AM JEWELRY CASTING MODEL MAKER APPRENTICE Assessment Noted Time PHQ-9 Depression Total Score: 1 08/20/20 20 3:00 PM CDT documented as of this encounter Care Teams Workers' Compensation Magistrate Relationship Specialty Start Date End Date Pierre Betancourt MD PCP - General Internal Medicine 12/21/19 Carlos Venegas MD [address] [place] [address] Consulting Physician Neurology 07/30/24 documented as of this encounter
--- OUTSIDE RECORDS SUMMARY | 2025-06-24 10:31 | XMS_ITS | Encounter Summary ---
Author Organization [facility] Address [address] [place] [address] Phone Care Team Providers Care Curriculum And Instruction Director Name Role Phone Pierre Betancourt MD Primary Care Provider Carlos Venegas MD Unavailable Reason for Visit * Reason Comments Medication Refill Encounter Details Date Type Department Care Team (Late st Contact Info) Description 02/15/[address] [facility] - Internal Medicine - [place] [address] [address] Pierre Betancourt MD [address] [place] [address] Medication Refill Social History Tobacco Use Types Packs/Day Years Used Date Smoking Tobacco: Never Passive Smoke Exposure: Never Smokeless Tobacco: Never Alcohol Use Standard Drinks/Week Comments Not Currently 0 (1 standard drink = 0.6 oz pur e alcohol) [facility] Utilities Answer Date Recorded In the past 12 months has [employer] electric, gas, oil, or water company threatened [...] attend chur ch or mormonism services? Never 12/18/2023 Do you belong to any clubs o r organizations such as uatsdin groups, unions, fraternal or athletic groups, or [...] Total Score - Questions 1-9 0 12/07 [facility] Occupat ional Health - Occupational [...] place to sleep or slept in a residential (including now)? No 12/18/2023 Education Answer Date [...] Dept 01/17/24 Office Visit [facility] [place] 12/19/23 [facility] [place] 10/11/23 Office Visit Henny Quinonez PAC [facility] [place] 09/14/23 Office Visit [facility] [place] 06/12/23 Office Visit Pierre Betancourt MD [facility] [place] 03/09/23 Office Visit Pierre Betancourt MD [facility] [place] Showing recent visits within past 365 days and meeting all other requirements Future Appointments Date Type Provider Dept 03/21/24 Appointment [facility] [place] Showing future appointments within next 90 days and meeting all other requirements documented in this encounter Plan of Treatment Upcoming Encounters Date Type Department Care Team (Late st Contact Info) Description 11/27/2025 2:00 PM MORTGAGE BROKER Office Visit [facility] - Neurology [facility] [address] [place] [address] Carlos Venegas MD [address] [place] [address] 12/03/2025 10:00 AM MORTGAGE BROKER Office Visit [facility] - Primary Care - [place] [address] [place] [address] Pierre Betancourt MD [address] [place] [address] documented as of this encounter Visit Diagnoses Not on filedocumented in this encounter Additional Health Concerns Assessment Noted Time PHQ-9 Depression Total Score: 0 12/19/19 24 3:06 PM MORTGAGE BROKER documented as of this encounter Care Teams Curriculum And Instruction Director Relationship Specialty Start Date End Date Pierre Betancourt MD PCP - General Internal Medicine 12/21/19 Carlos Venegas MD [address] [place] [address] Consulting Physician Neurology 07/30/24 documented as of this encounter
--- OUTSIDE RECORDS SUMMARY | 2025-06-24 10:31 | XMS_ITS | Encounter Summary ---
Author Organization [facility] Address [address] [place] [address] Phone Care Team Providers Care Automobile Body Repair Supervisor Name Role Phone Pierre Betancourt MD Primary Care Provider Carlos Venegas MD Unavailable [phone] Reason for Visit * Reason Comments Medication Refill Encounter Details Date Type Department Care Team (Late st Contact Info) Description 05/10/2023 Refill [facility] - Internal Medicine - [place] [address] [place] [address] Pierre Betancourt MD [address] [place] [address] Medication Refill Social History Tobacco Use Types [...] 03/09/23 Office Visit Pierre Betancourt MD [facility] [place] 12/21/22 Telemedicine Pierre Betancourt MD [facility] [place] 12/08/22 Office Visit Pierre Betancourt MD [facility] [place] 07/25/22 Office Visit Pierre Betancourt MD [facility] [place] Showing recent visits within past 365 days and meeting all other requirements Future Appointments Date Type Provider Dept 06/12/23 Appointment Pierre Betancourt MD [facility] [place] Showing future appointments within next 90 days and meeting all other requirements documented in this encounter Plan of Treatment Upcoming Encounters Date Type Department Care Team (Late st Contact Info) Description 11/27/2025 2:00 PM TUBE FILLER Office Visit [facility] - Neurology [facility] [address] [place] [address] Carlos Venegas MD [address] [place] [address] 12/03/2025 10:00 AM TUBE FILLER Office Visit [facility] - Primary Care - [place] [address] [place] [address] Pierre Betancourt MD [address] [place] [address] documented as of this encounter Visit Diagnoses Diagnosis Generalized anxiety disorder documented in this encounter Additional Health Concerns Assessment Noted Time PHQ-9 Depression Total Score: 1 07/25/20 22 9:00 AM CDT documented as of this encounter Care Teams Automobile Body Repair Supervisor Relationship Specialty Start Date End Date Pierre Betancourt MD PCP - General Internal Medicine 12/21/19 Carlos Venegas MD [address] [place] [address] Consulting Physician Neurology 07/30/24 documented as of this encounter
--- OUTSIDE RECORDS SUMMARY | 2025-06-24 10:31 | XMS_ITS | Encounter Summary ---
Author Organization [facility] Address [address] [place] [address] Phone Care Team Providers Care Manager Ecommerce Name Role Phone Pierre Betancourt MD Primary Care Provider Carlos Venegas MD Unavailable Reason for Visit * Reason Comments Medication Refill Encounter Details Date Type Department Care Team (Late st Contact Info) Description 02/17/2024 Refill [facility] - Internal Medicine - [place] [address] [place] [address] Pierre Betancourt MD [address] [place] [address] Medication Refill Social History Tobacco Use Types Packs/Day Years Used Date Smoking Tobacco: Never Passive Smoke Exposure: Never Smokeless Tobacco: Never Alcohol Use Standard Drinks/Week Comments Not Currently 0 (1 standard drink = 0.6 oz pur e alcohol) [facility] Utilities Answer Date Recorded In the past 12 months has [employer] electric, gas, oil, or water company threatened [...] often do you attend chur ch or islam services? Never 12/18/2023 Do you belong to [...] Total Score - Questions 1-9 0 12/07 [facility] - [...] place to sleep or slept in a penitentiary (including now)? No 12/18/2023 Education Answer Date [...] Telephone Encounter - Didi Yap RN - 02/17/2024 2:35 PM CDT [...] 01/17/24 Office Visit Pierre Betancourt MD [facility] 12/19/23 Office Visit Pierre Betancourt MD [facility] 10/11/23 Office Visit [facility], [facility] [place] 09/14/23 Office Visit Pierre Betancourt MD [facility] [place] 06/12/23 Office Visit Pierre Betancourt MD [facility] [place] 03/09/23 Office Visit [facility] [place] Showing recent visits within past 365 days and meeting all other requirements Future Appointments Date Type Provider Dept 03/21/24 Appointment Pierre Betancourt MD [facility] [place] Showing future appointments within next 90 days and meeting all other requirements documented in this encounter Plan of Treatment Upcoming Encounters Date Type Department Care Team (Late st Contact Info) Description 11/27/2025 2:00 PM SPRAY WORKER Office Visit [facility] - Neurology [facility] [address] [place] [address] Carlos Venegas MD [address] [place] [address] 12/03/2025 10:00 AM SPRAY WORKER Office Visit [facility] - Primary Care - [place] [address] [place] [address] Pierre Betancourt MD [address] [place] [address] documented as of this encounter Visit Diagnoses Not on filedocumented in this encounter Additional Health Concerns Assessment Noted Time PHQ-9 Depression Total Score: 0 12/19/19 24 3:06 PM SPRAY WORKER documented as of this encounter Care Teams Manager Ecommerce Relationship Specialty Start Date End Date Pierre Betancourt MD PCP - General Internal Medicine 12/21/19 Carlos Venegas MD [address] [facility] [place] [address] Consulting Physician Neurology 07/30/24 documented as of this encounter
--- OUTSIDE RECORDS SUMMARY | 2025-06-24 10:31 | XMS_ITS | Encounter Summary ---
Author Organization [facility] Address [address] [place] [address] Phone Care Team Providers Care Efficiency Engineer Name Role Phone Pierre Betancourt MD Primary Care Provider Carlos Venegas MD Unavailable Reason for Visit * Reason Comments Medication Refill Encounter Details Date Type Department Care Team (Late st Contact Info) Description 04/26/2021 Refill [facility] - Internal Medicine - [place] [address] [place] [address] Pierre Betancourt MD [address] [place] [address] Medication Refill Social History Tobacco Use Types [...] st Contact Info) Description 11/27/2025 2:00 PM PACKAGING ASSEMBLER Office Visit [facility] - Neurology - [place] [address] [place] [address] Carlos Venegas MD [address] [place] [address] 12/03/2025 10:00 AM PACKAGING ASSEMBLER Office Visit [facility] - Primary Care - [place] [address] [place] [address] Pierre Betancourt MD [address] [place] [address] documented as of this encounter Visit Diagnoses Not on filedocumented in this encounter Additional Health Concerns Infection Onset Date Last Indicated Resolved Time COVID - 19 11/02/2021 11/02/2021 11/22/2021 12:1 6 AM PACKAGING ASSEMBLER Assessment Noted Time PHQ-9 Depression Total Score: 1 08/20/20 20 3:00 PM CDT documented as of this encounter Care Teams Efficiency Engineer Relationship Specialty Start Date End Date Pierre Betancourt MD PCP - General Internal Medicine 12/21/19 Carlos Venegas MD [address] [place] [address] Consulting Physician Neurology 07/30/24 documented as of this encounter
--- OUTSIDE RECORDS SUMMARY | 2025-06-24 10:31 | XMS_ITS | Encounter Summary ---
Author Organization [facility] Address [address] [place] [address] Phone Care Team Providers Care Resistance Welder Name Role Phone Pierre Betancourt MD Primary Care Provider Carlos Venegas MD Unavailable Reason for Visit * Reason Comments Medication Refill Encounter Details Date Type Department Care Team (Late st Contact Info) Description 04/26/2021 Refill [facility] - Internal Medicine - [place] [address] [place] [address] Henny Quinonez, [facility] [address] [place] [address] Medication Refill Social History Tobacco Use Types [...] st Contact Info) Description 11/27/2025 2:00 PM COREMAKING SUPERVISOR Office Visit [facility] - Neurology - [place] [address] [place] [address] Carlos Venegas MD [address] [place] [address] 12/03/2025 10:00 AM COREMAKING SUPERVISOR Office Visit [facility] - Primary Care - [place] [address] [place] [address] Pierre Betancourt MD [address] [place] [address] documented as of this encounter Visit Diagnoses Not on filedocumented in this encounter Additional Health Concerns Infection Onset Date Last Indicated Resolved Time COVID - 19 11/02/2021 11/02/2021 11/22/2021 12:1 6 AM COREMAKING SUPERVISOR Assessment Noted Time PHQ-9 Depression Total Score: 1 08/20/20 20 3:00 PM CDT documented as of this encounter Care Teams Resistance Welder Relationship Specialty Start Date End Date Pierre Betancourt MD PCP - General Internal Medicine 12/21/19 Carlos Venegas MD [address] [place] [address] Consulting Physician Neurology 07/30/24 documented as of this encounter
--- OUTSIDE RECORDS SUMMARY | 2025-06-24 10:31 | XMS_ITS | Encounter Summary ---
Author Organization [facility] Address [address] [place] [address] Phone Care Team Providers Care Parking Regulation Enforcement Officer Name Role Phone Pierre Betancourt MD Primary Care Provider Carlos Venegas MD Unavailable Reason for Visit * Reason Comments Medication Refill Encounter Details Date Type Department Care Team (Late st Contact Info) Description 07/02/2024 Refill [facility] Medical Group - Internal Medicine - [place] [address] [place] [address] Pierre Betancourt MD [address] [place] [address] Medication Refill Social History Tobacco Use Types Packs/Day Years Used Date Smoking Tobacco: Never Passive Smoke Exposure: Never Smokeless Tobacco: Never Alcohol Use Standard Drinks/Week Comments Not Currently 0 (1 standard drink = 0.6 oz pur e alcohol) [facility] Utilities Answer Date Recorded In the past 12 months has [employer] electric, gas, oil, or water company threatened [...] often do you attend chur ch or uatsdin services? Never 12/18/2023 Do you belong to [...] Total Score - Questions 1-9 1 04/06 [facility]at ional [facility] - [...] a long term (including now)? No 12/18/2023 Education Answer Date [...] st Contact Info) Description 11/27/2025 2:00 PM RESEARCH ASST Office Visit [facility] - Neurology [facility] [address] [place] [address] Carlos Venegas MD [address] [place] [address] 12/03/2025 10:00 AM RESEARCH ASST Office Visit [facility] - Primary Care - [place] [address] [place] [address] Pierre Betancourt MD [address] [place] [address] documented as of this encounter Visit Diagnoses Not on filedocumented in this encounter Additional Health Concerns Assessment Noted Time PHQ-9 Depression Total Score: 1 04/17/20 24 8:04 AM CDT documented as of this encounter Care Teams Parking Regulation Enforcement Officer Relationship Specialty Start Date End Date Pierre Betancourt MD PCP - General Internal Medicine 12/21/19 Carlos Venegas MD [address] [place] [address] Consulting Physician Neurology 07/30/24 documented as of this encounter
--- OUTSIDE RECORDS SUMMARY | 2025-06-24 10:31 | XMS_ITS | Encounter Summary ---
Author Organization [facility] Address [address] [place] [address] Phone Care Team Providers Care Territory Sales Professional Name Role Phone Pierre Betancourt MD Primary Care Provider Carlos Venegas MD Unavailable Reason for Visit * Reason Comments Medication Refill Encounter Details Date Type Department Care Team (Late st Contact Info) Description 01/07/2024 Refill [facility] - Internal Medicine - [place] [address] [place] [address] Pierre Betancourt MD [address] [place] [address] Medication Refill Social History Tobacco Use Types Packs/Day Years Used Date Smoking Tobacco: Never Passive Smoke Exposure: Never Smokeless Tobacco: Never Alcohol Use Standard Drinks/Week Comments Not Currently 0 (1 standard drink = 0.6 oz pur e alcohol) [facility] Utilities Answer Date Recorded In the past 12 months has [employer] electric, gas, oil, or water company threatened [...] often do you attend chur ch or yazidi services? Never 12/18/2023 Do you belong to any clubs o r organizations such as confucianism groups, unions, fraternal or athletic groups, or [...] Total Score - Questions 1-9 0 12/07 [facility] Occupat ional Health - Occupational [...] AM CST Medication(s) refilled and signed [facility] Medication Refill Standing Order for Pediatricand [...] Dept 12/19/23 Office Visit [facility]11[facility]23 Office Visit Henny Quinonez PAC [facility] 09/14/23 Office Visit Pierre Betancourt MD [facility] [place] 06/12/23 Office Visit Pierre Betancourt MD [facility] [place] 03/09/23 Office Visit Pierre Betancourt MD [facility] [place] Showing recent visits within past 365 days and meeting all other requirements Future Appointments Date Type Provider Dept 01/17/24 Appointment Pierre Betancourt MD [facility] [place] 03/21/24 Appointment Pierre Betancourt MD [facility] [place] Showing future appointments within next 90 days and meeting all other requirements ERSHIP DIRECTOR documented in this encounter Plan of Treatment Upcoming Encounters Date Type Department Care Team (Late st Contact Info) Description 11/27/2025 2:00 PM MEMBERSHIP DIRECTOR Office Visit [facility] - Neurology [facility] [address] [place] [address] Carlos Venegas MD [address] [place] [address] 12/03/2025 10:00 AM MEMBERSHIP DIRECTOR Office Visit [facility] - Primary Care - [place] [address] [place] [address] Pierre Betancourt MD [address] [place] [address] documented as of this encounter Visit Diagnoses Not on filedocumented in this encounter Additional Health Concerns Assessment Noted Time PHQ-9 Depression Total Score: 0 12/19/19 3:06 PM MEMBERSHIP DIRECTOR documented as of this encounter Care Teams Territory Sales Professional Relationship Specialty Start Date End Date Pierre Betancourt MD PCP - General Internal Medicine 12/21/19 Carlos Venegas MD [address] [place] [address] Consulting Physician Neurology 07/30/24 documented as of this encounter
--- OUTSIDE RECORDS SUMMARY | 2025-06-24 10:31 | XMS_ITS | Encounter Summary ---
Author Organization [facility] Address [address] [place] [address] Phone Care Team Providers Care Health Safety Manager Name Role Phone Pierre Betancourt MD Primary Care Provider Carlos Venegas MD Unavailable Reason for Visit * Reason Comments Medication Refill Encounter Details Date Type Department Care Team (Late st Contact Info) Description 04/01/2023 Refill [facility] Medical Group - Internal Medicine - [place] [address] [address] Pierre Betancourt MD [address] [place] [address] Medication Refill Social History Tobacco Use Types [...] Dept 03/09/23 Office [facility] [place] 12/21/22 Telemedicine Pierre Betancourt MD [facility] [place] 12/08/22 Office Visit Pierre Betancourt MD [facility] [place] 07/25/22 Office Visit [facility] [place] Showing recent visits within past 365 days and meeting all other requirements Future Appointments Date Type Provider Dept 06/12/23 Appointment [facility] [place] Showing future appointments within next 90 days and meeting all other requirements documented in this encounter Plan of Treatment Upcoming Encounters Date Type Department Care Team (Late st Contact Info) Description 11/27/2025 2:00 PM QUALITY ENG [facility] [address] [place] [address] Carlos Venegas MD [address] [place] [address] 12/03/2025 10:00 AM QUALITY ENG Office Visit [facility] - Primary Care - [place] [address] [place] [address] Pierre Betancourt MD [address] [place] [address] documented as of this encounter Visit Diagnoses Not on filedocumented in this encounter Additional Health Concerns Assessment Noted Time PHQ-9 Depression Total Score: 1 07/25/20 22 9:00 AM CDT documented as of this encounter Care Teams Health Safety Manager Relationship Specialty Start Date End Date Pierre Betancourt MD PCP - General Internal Medicine 12/21/19 Carlos Venegas MD [address] [place] [address] Consulting Physician Neurology 07/30/24 documented as of this encounter
--- OUTSIDE RECORDS SUMMARY | 2025-06-24 10:31 | XMS_ITS | Encounter Summary ---
Author Organization [facility] Address [address] [place] [address] Phone Care Team Providers Care Mail Handler Sorter Name Role Phone Pierre Betancourt MD Primary Care Provider [phone] Carlos Venegas MD Unavailable [phone] Reason for Visit * Reason Comments Medication Refill Encounter Details Date Type Department Care Team (Late st Contact Info) Description 05/24/2025 Refill [facility] - Internal Medicine - [place] [address] [place] [address] Pierre Betancourt MD [address] [place] [address] Medication Refill Social History Tobacco Use Types Packs/Day Years Used Date Smoking Tobacco: Never Passive Smoke Exposure: Never Smokeless Tobacco: Never Alcohol Use Standard Drinks/Week Comments Not Currently 0 (1 standard drink = 0.6 oz pur e alcohol) [facility] Utilities Answer Date Recorded In the past 12 months has [employer] electric, gas, oil, or water company threatened [...] often do you attend chur ch or quaker services? Never 11/20/2024 Do you belong to [...] Total Score - Questions 1-9 0 11/06 [facility] Occupat ional Health - [...] place to sleep or slept in a mcfp (including now)? No 12/18/2023 Housing Stability Vital Sign Answer Erasmo e Recorded In the last 12 months, was t here a time when you were not able to pay the mortgage or rent on time? No 11/20/2024 In the past 12 months, how m any times have you moved where you were living? 0 11/20/2024 At any time in the past 12 m [facility], were you homeless or living in a mcfp (including now)? No 11/20/2024 Education Answer Date [...] st Contact Info) Description 11/27/2025 2:00 PM SUPERVISOR STATEMENT CLERKS Office Visit [facility] - Neu[facility] [address] [place] [address] Carlos Venegas MD [address] [place] [address] 12/03/2025 10:00 AM SUPERVISOR STATEMENT CLERKS [facility] Care - [place] [address] [place] [address] Pierre Betancourt MD [address] [place] [address] documented as of this encounter Visit Diagnoses Not on filedocumented in this encounter Additional Health Concerns Assessment Noted Time PHQ-9 Depression Total Score: 0 11/21/19 25 10:35 AM SUPERVISOR STATEMENT CLERKS documented as of this encounter Care Teams Mail Handler Sorter Relationship Specialty Start Date End Date Pierre Betancourt MD PCP - General Internal Medicine 12/21/19 Carlos Venegas MD [address] [place] [address] Consulting Physician Neurology 07/30/24 documented as of this encounter
--- OUTSIDE RECORDS SUMMARY | 2025-06-24 10:32 | XMS_ITS | Encounter Summary ---
Author Organization [facility] Address [address] [place] [address] Phone Care Team Providers Care Transportation Maintenance Worker Name Role Phone Pierre Betancourt MD Primary Care Provider Carlos Venegas MD Unavailable Reason for Visit * Reason Comments Medication Refill Encounter Details Date Type Department Care Team (Late st Contact Info) Description 03/30/2024 Refill [facility] - Internal Medicine - [place] [address] [place] [address] Pierre Betancourt MD [address] [place] [address] Medication Refill Social History Tobacco Use Types Packs/Day Years Used Date Smoking Tobacco: Never Passive Smoke Exposure: Never Smokeless Tobacco: Never Alcohol Use Standard Drinks/Week Comments Not Currently 0 (1 standard drink = 0.6 oz pur e alcohol) [facility] Utilities Answer Date Recorded In the past 12 months has [employer] electric, gas, oil, or water company threatened [...] often do you attend chur ch or orthodox services? Never 12/18/2023 Do you belong to any clubs o r organizations such as holiness groups, unions, fraternal or athletic groups, or [...] Score - Questions 1-9 0 12/07 [facility] of Occupat ional Health - Occupational Stress [...] place to sleep or slept in a nursing home (including now)? No 12/18/2023 Education Answer Date [...] 01/17/24 Office Visit Pierre Betancourt MD [facility] 12/19/23 Office Visit Pierre Betancourt MD [facility] 10/11/23 Office Visit Henny Quinonez PAC [facility] [place] 09/14/23 Office Visit Pierre Betancourt MD [facility] [place] 06/12/23 Office Visit Pierre Betancourt MD [facility] [place] Showing recent visits within past 365 days and meeting all other requirements Future Appointments Date Type Provider Dept 04/17/24 Appointment Pierre Betancourt MD [facility] [place] Showing future appointments within next 90 days and meeting all other requirements documented in this encounter Plan of Treatment Upcoming Encounters Date Type Department Care Team (Late st Contact Info) Description 11/27/2025 2:00 PM DIRECTOR OF PRODUCT MARKETING Office Visit [facility] - Neurology [facility] [address] [place] [address] Carlos Venegas MD [address] [place] [address] 12/03/2025 10:00 AM DIRECTOR OF PRODUCT MARKETING Office Visit [facility] - Primary Care - [place] [address] [place] [address] Pierre Betancourt MD [address] [place] [address] documented as of this encounter Visit Diagnoses Not on filedocumented in this encounter Additional Health Concerns Assessment Noted Time PHQ-9 Depression Total Score: 0 12/19/19 24 3:06 PM DIRECTOR OF PRODUCT MARKETING documented as of this encounter Care Teams Transportation Maintenance Worker Relationship Specialty Start Date End Date Pierre Betancourt MD PCP - General Internal Medicine 12/21/19 Carlos Venegas MD [address] [place] [address] Consulting Physician Neurology 07/30/24 documented as of this encounter
--- OUTSIDE RECORDS SUMMARY | 2025-06-24 10:32 | XMS_ITS | Encounter Summary ---
Author Organization [facility] Address [address] [place] [address] Phone Care Team Providers Care Reliability Specialist Name Role Phone Pierre Betancourt MD Primary Care Provider Carlos Venegas MD Unavailable Reason for Visit * Reason Comments Medication Refill Encounter Details Date Type Department Care Team (Late st Contact Info) Description 04/04/2024 Refill [facility] - Internal Medicine - [place] [address] [place] [address] Pierre Betancourt MD [address] [place] [address] Medication Refill Social History Tobacco Use Types Packs/Day Years Used Date Smoking Tobacco: Never Passive Smoke Exposure: Never Smokeless Tobacco: Never Alcohol Use Standard Drinks/Week Comments Not Currently 0 (1 standard drink = 0.6 oz pur e alcohol) [facility] Utilities Answer Date Recorded In the past 12 months has [employer] electric, gas, oil, or water company threatened [...] often do you attend chur ch or baptist services? Never 12/18/2023 Do you belong to any clubs o r organizations such as adventist groups, unions, fraternal or athletic groups, or [...] Total Score - Questions 1-9 0 12/07 [facility] of Occupat ional Health - Occupational [...] in a custodial (including now)? No 12/18/2023 Education Answer Date [...] Dept 01/17/24 Office Visit Pierre Betancourt MD [facility] [place] 12/19/23 Office Visit Pierre Betancourt MD [facility] [place] 10/11/23 Office Visit Henny Quinonez PAC [facility] [place] Showing recent visits within past 182 days and meeting all other requirements Future Appointments Date Type Provider Dept 04/17/24 Appointment Pierre Betancourt MD [facility] [place] Showing future appointments within next 90 days [...] st Contact Info) Description 11/27/2025 2:00 PM PLANT OPERATIONS WORKER Office Visit [facility] - Neurology - [place] [address] [place] [address] Carlos Venegas MD [address] [place] [address] 12/03/2025 10:00 AM PLANT OPERATIONS WORKER Office Visit [facility] - Primary Care - [place] [address] [place] [address] Pierre Betancourt MD [address] [place] [address] documented as of this encounter Visit Diagnoses Not on filedocumented in this encounter Additional Health Concerns Assessment Noted Time PHQ-9 Depression Total Score: 0 12/19/19 24 3:06 PM PLANT OPERATIONS WORKER documented as of this encounter Care Teams Reliability Specialist Relationship Specialty Start Date End Date Pierre Betancourt MD PCP - General Internal Medicine 12/21/19 Carlos Venegas MD [address] [place] [address] Consulting Physician Neurology 07/30/24 documented as of this encounter
--- OUTSIDE RECORDS SUMMARY | 2025-06-24 10:32 | XMS_ITS | Encounter Summary ---
Author Organization [facility] Address [address] [place] [address] Phone Care Team Providers Care Instrument Panel Assembler Name Role Phone Pierre Betancourt MD Primary Care Provider Carlos Venegas MD Unavailable [phone] Reason for Visit * Reason Comments Medication Refill Encounter Details Date Type Department Care Team (Late st Contact Info) Description 03/07/2024 Refill [facility] - Internal Medicine - [place] [address] [place] [address] Pierre Betancourt MD [address] [place] [address] Medication Refill Social History Tobacco Use Types Packs/Day Years Used Date Smoking Tobacco: Never Passive Smoke Exposure: Never Smokeless Tobacco: Never Alcohol Use Standard Drinks/Week Comments Not Currently 0 (1 standard drink = 0.6 oz pur e alcohol) [facility] Utilities Answer Date Recorded In the past 12 months has [employer], gas, oil, or water company threatened [...] often do you attend chur ch or christian services? Never 12/18/2023 Do you belong to any clubs o r organizations such as methodist groups, unions, fraternal or athletic groups, or [...] Total Score - Questions 1-9 0 12/07 [facility] - Occupational Stress [...] Dept 01/17/24 Office Visit [facility] [place] 12/19/23 Office Visit [facility] [place] 10/11/23 Office Visit Henny Quinonez PAC [facility] [place] 09/14/23 Office Visit [facility] [place] 06/12/23 Office Visit [facility] [place] 03/09/23 Office Visit Pierre Betancourt MD [facility] [place] Showing recent visits within past 365 days and meeting all other requirements Future Appointments Date Type Provider Dept 03/21/24 Appointment Pierre Betancourt MD [facility] [place] Showing future appointments within next 90 days and meeting all other requirements documented in this encounter Plan of Treatment Upcoming Encounters Date Type Department Care Team (Late st Contact Info) Description 11/27/2025 2:00 PM BUSINESS ADMINISTRATION TEACHER Office Visit [facility] - Neurology [facility] [address] [place] [id number] Carlos Venegas MD [address] [place] [phone] 12/03/2025 10:00 AM BUSINESS ADMINISTRATION TEACHER Office Visit [facility] - Primary Care - [place] [address] [place] [phone] Pierre Betancourt MD [address] [place] [address] documented as of this encounter Visit Diagnoses Not on filedocumented in this encounter Additional Health Concerns Assessment Noted Time PHQ-9 Depression Total Score: 0 12/19/19 24 3:06 PM BUSINESS ADMINISTRATION TEACHER documented as of this encounter Care Teams Instrument Panel Assembler Relationship Specialty Start Date End Date Pierre Betancourt MD PCP - General Internal Medicine 12/21/19 Carlos Venegas MD [address] [place] [id number] Consulting Physician Neurology 07/30/24 documented as of this encounter
== END 2025-06-24 10:18 | disposition home or self-care (01) ==
LOC: CHSED 10:05
PROVIDERS: Emergency Provider Emergency Medicine; PCP Internal Medicine
DX: S01.81XA Laceration without foreign body of other part of head, initial encounter (principal); I10 Essential (primary) hypertension; E11.9 Type 2 diabetes mellitus without complications; Z23 Encounter for immunization; M06.9 Rheumatoid arthritis, unspecified; W45.8XXA Other foreign body or object entering through skin, initial encounter
CPT/HCPCS: 12013; 70450; 72125; 90471; 90715; 99284